=== PATIENT | male | born 1950 | race Caucasian/White ===

== ENCOUNTER → 2017-10-01 07:25 | Outpatient (CLI) | payer MEDICARE, OTHER, SELFPAY | PROVIDERS: PCP Emergency Medicine; Visit Provider Surgery | DX: L72.3 Sebaceous cyst (principal) | CPT/HCPCS: 99213 ==

== ENCOUNTER 2018-09-30 01:29 | Outpatient (CLI) | payer MEDICARE, OTHER, SELFPAY ==
[2018-09-30 12:43] LABS: Calculated LDL 101 mg/dL; Cholesterol 204 mg/dL (50-200); HDL Cholesterol 34 mg/dL (40-60); Triglyceride 347 mg/dL (30-150)
== END 2018-09-30 01:49 ==
PROVIDERS: PCP Emergency Medicine; Visit Provider Emergency Medicine
DX: E78.5 Hyperlipidemia, unspecified (principal)
CPT/HCPCS: 36415; 80061; 83721

== ENCOUNTER 2019-12-17 12:02 | Outpatient (REF) | payer MEDICARE, OTHER, SELFPAY ==
[2019-12-17 22:45] LABS: BUN 25 mg/dL (7-18); CREATININE 1.36 mg/dL (0.70-1.30); Calcium 10.4 mg/dL (8.5-10.1); Chloride 103 mmol/L (98-107); Estimated GFR 51.81 (mL/min/1.73m2); Glucose 102 mg/dL (74-106); Potassium 4.6 mmol/L (3.5-5.1); Sodium 137 mmol/L (136-145)
== END 2019-12-17 12:22 ==
LOC: LBN 12:02
PROVIDERS: PCP Emergency Medicine; Visit Provider Emergency Medicine
DX: I10 Essential (primary) hypertension (principal)
CPT/HCPCS: 80048

== ENCOUNTER 2020-04-14 01:37 | Outpatient (CLI) | payer MEDICARE, OTHER, SELFPAY ==
--- NOTE | 2020-04-14 06:30 | DI.US_ITS ---
EXAM: US ABDOMEN CLINICAL HISTORY: EPIGASTRIC ABD PAIN, R10.13 TECHNIQUE: Ultrasound of complete upper abdomen performed using standard protocol. COMPARISON: US Cardiac from 04/19/2016 FINDINGS: There is no ascites evident. LIVER: Liver is hyperechoic indicating steatosis. Liver size is also slightly prominent. There are no discrete ominous focal hepatic lesions. GALLBLADDER/BILIARY: There are no gallstones. No gallbladder wall edema nor pericholecystic fluid. The common hepatic duct measures 6 millimeters. CBD measures 9-10 millimeters. PANCREAS: There is no evidence of pancreatic mass nor dilatation of the pancreatic duct. SPLEEN: The spleen is not enlarged and there are no intrasplenic lesions evident. KIDNEYS:Kidneys exhibit normal size with no evidence of solid mass. There is a small exophytic cyst i n the mid cortex of the left kidney which measures 5 millimeter. There are few small echogenic foci i n the kidneys which may be tiny nonobstructive calculi. There is no hydronephrosis on either side. ABDOMINAL AORTA: There is no evidence of abdominal aortic aneurysm. IVC: Normal diameter where visualized. IMPRESSION: 1. No evidence of cholelithiasis. However, there is some dilatation of the extrahepatic biliary tree noted. Recommend follow-up CT scan to ensure that there is no pancreatic head mass nor calculus in t he lower CBD. 2. Liver is enlarged and hyperechoic indicating steatosis. There are no ominous focal hepatic lesion s. 3. Small benign cysts in the left kidney. Small echogenic foci in the kidneys which may indicate non obstructing calculi. DATA REPOSITORY:
== END 2020-04-14 01:38 ==
LOC: DI 01:37
PROVIDERS: PCP Emergency Medicine; Visit Provider Emergency Medicine
DX: R10.13 Epigastric pain (principal); K76.0 Fatty (change of) liver, not elsewhere classified
CPT/HCPCS: 76700

== ENCOUNTER → 2020-04-27 12:53 | Outpatient (BNVA) | payer MEDICARE, OTHER, SELFPAY | PROVIDERS: PCP Emergency Medicine; Referring Provider Emergency Medicine; Visit Provider Nurse Practitioner Gerontology | DX: R35.0 Frequency of micturition (principal); N40.0 Benign prostatic hyperplasia without lower urinary tract symptoms; Z80.42 Family history of malignant neoplasm of prostate; I10 Essential (primary) hypertension | CPT/HCPCS: 99215; G2212 ==

== ENCOUNTER 2020-04-27 15:55 | Outpatient (REF) | payer MEDICARE, OTHER, SELFPAY ==
[2020-04-27 23:07] LABS: PSA, Screening 1.8 ng/mL (0.0-6.5)
== END 2020-04-27 15:56 | disposition home or self-care (01) ==
LOC: LBN 15:55
PROVIDERS: PCP Emergency Medicine; Visit Provider Nurse Practitioner Gerontology
DX: N40.0 Benign prostatic hyperplasia without lower urinary tract symptoms (principal); Z12.5 Encounter for screening for malignant neoplasm of prostate; Z80.42 Family history of malignant neoplasm of prostate
CPT/HCPCS: 84153

== ENCOUNTER 2020-05-19 12:58 | Outpatient (REF) | payer MEDICARE, SELFPAY ==
[2020-05-19 22:27] LABS: Anion Gap 10.3 mmol/L (3-11); BUN 42 mg/dL (7-18); CO2 25.7 mmol/L (21.0-32.0); CREATININE 1.6 mg/dL (0.70-1.30); Chloride 103 mmol/L (98-107); Estimated GFR 42.82 (mL/min/1.73m2); Glucose 100 mg/dL (74-106); Potassium 4.7 mmol/L (3.5-5.1); Sodium 139 mmol/L (136-145)
== END 2020-05-19 12:59 | disposition home or self-care (01) ==
LOC: LBN 12:58
PROVIDERS: PCP Emergency Medicine; Visit Provider Emergency Medicine
DX: I10 Essential (primary) hypertension (principal)
CPT/HCPCS: 80048

== ENCOUNTER → 2020-06-10 08:30 | Outpatient (BNVA) | payer MEDICARE, OTHER, SELFPAY | PROVIDERS: PCP Emergency Medicine; Referring Provider Emergency Medicine; Visit Provider Nurse Practitioner Gerontology | DX: R35.1 Nocturia (principal) | CPT/HCPCS: 99213 ==

== ENCOUNTER 2020-08-09 02:56 | Outpatient (CLI) | payer MEDICARE, OTHER, SELFPAY ==
[2020-08-09 12:21] LABS: Bilirubin Negative (Negative); Blood Negative (Negative); Clarity Clear (Clear); Glucose Negative (Negative); Ketones Negative (Negative); Leukocyte Esterase Negative (Negative); Nitrite Negative (Negative); Urobilinogen 0.2 EU/dL (Up TO 0.2)
[2020-08-09 12:25] LABS: Anion Gap 7.7 mmol/L (3-11); BUN 35 mg/dL (7-18); CO2 30.3 mmol/L (21.0-32.0); CREATININE 1.4 mg/dL (0.70-1.30); Calcium 9.7 mg/dL (8.5-10.1); Chloride 102 mmol/L (98-107); Estimated GFR 49.96 (mL/min/1.73m2); Glucose 137 mg/dL (74-106); Sodium 140 mmol/L (136-145)
== END 2020-08-09 02:57 | disposition home or self-care (01) ==
PROVIDERS: PCP Emergency Medicine; Visit Provider Emergency Medicine
DX: I10 Essential (primary) hypertension (principal); N18.9 Chronic kidney disease, unspecified
CPT/HCPCS: 36415; 80048; 81003

== ENCOUNTER 2020-10-18 03:16 | Outpatient (CLI) | payer MEDICARE, SELFPAY ==
[2020-10-18 13:26] LABS: Anion Gap 10.4 mmol/L (3-11); BUN 31 mg/dL (7-18); CO2 28.6 mmol/L (21.0-32.0); CREATININE 1.7 mg/dL (0.70-1.30); Calcium 10.9 mg/dL (8.5-10.1); Chloride 102 mmol/L (98-107); Estimated GFR 39.93 (mL/min/1.73m2); Glucose 87 mg/dL (74-106); Potassium 4.5 mmol/L (3.5-5.1); Sodium 141 mmol/L (136-145)
[2020-10-18 14:51] LABS: Hemoglobin A1C 5.9 % (<5.7)
== END 2020-10-18 03:17 | disposition home or self-care (01) ==
LOC: LOS 03:16
PROVIDERS: PCP Emergency Medicine; Visit Provider Emergency Medicine
DX: I10 Essential (primary) hypertension (principal); E11.9 Type 2 diabetes mellitus without complications
CPT/HCPCS: 36415; 80048; 83036

== ENCOUNTER 2020-11-01 03:51 | Outpatient (CLI) | payer MEDICARE, SELFPAY ==
[2020-11-01 13:08] LABS: Anion Gap 7.9 mmol/L (3-11); BUN 27 mg/dL (7-18); CO2 29.1 mmol/L (21.0-32.0); CREATININE 1.3 mg/dL (0.70-1.30); Calcium 10.7 mg/dL (8.5-10.1); Chloride 103 mmol/L (98-107); Estimated GFR 54.42 (mL/min/1.73m2); Glucose 97 mg/dL (74-106); Potassium 4.4 mmol/L (3.5-5.1); Sodium 140 mmol/L (136-145)
[2020-11-04 14:58] LABS: PTH-Related Peptide 0.7 pmol/L (< or = 4.2)
== END 2020-11-01 03:52 | disposition home or self-care (01) ==
PROVIDERS: PCP Emergency Medicine; Visit Provider Emergency Medicine
DX: N18.9 Chronic kidney disease, unspecified (principal); I10 Essential (primary) hypertension
CPT/HCPCS: 36415; 80048; 82397

== ENCOUNTER 2021-01-20 12:41 | Outpatient (CLI) | payer MEDICARE, OTHER, SELFPAY ==
--- NOTE | 2021-01-20 11:00 | DI.RAD_ITS ---
Exam(s) XR KNEE RT 3V AP,LAT,LESLIE EXAM: XR KNEE RT 3V AP,LAT,LESLIE CLINICAL HISTORY: right knee pain M25.569. TECHNIQUE: 2D digital imaging was performed. COMPARISON: No exams were available for comparison FINDINGS: There is no evidence of fracture or prominent joint effusion. On the weight-bearing view there is mo derate narrowing of the lateral compartment mild narrowing of the medial compartment. Subtle chondro calcinosis noted in the medial compartment. Mild degenerative changes in the hello femoral compartment. Vascular calcification the popliteal art saeid noted. No osseous lesions. Bone density age-appropriate. IMPRESSION: Degenerative changes as described above. DATA REPOSITORY: RADIATION DOSE DELIVERED:
--- NOTE | 2021-01-20 11:00 | DI.RAD_ITS ---
Exam(s) XR TOE LT GREAT EXAM: XR TOE LT GREAT CLINICAL HISTORY: left great toe pain M79.675. TECHNIQUE: 2D digital imaging was performed. COMPARISON: No exams were available for comparison FINDINGS: There is no evidence of obvious fracture, realizing that there is overlapping bones on the lateral vi ew. There are advanced degenerative changes at the metatarsophalangeal joint of the great toe with elimin ation of the joint space and subarticular degenerative cysts on both sides the joint. Also small mar ginal osteophytes. No degenerative changes in the interphalangeal joint of great toe IMPRESSION: Advanced degenerative changes at the great toe metatarsophalangeal joint. DATA REPOSITORY: RADIATION DOSE DELIVERED:
== END 2021-01-20 13:01 ==
PROVIDERS: PCP Emergency Medicine; Visit Provider Emergency Medicine
DX: M79.675 Pain in left toe(s) (principal); M25.561 Pain in right knee; M19.072 Primary osteoarthritis, left ankle and foot; M17.11 Unilateral primary osteoarthritis, right knee; M11.261 Other chondrocalcinosis, right knee
CPT/HCPCS: 73562; 73660

== ENCOUNTER 2021-03-14 02:08 | Outpatient (CLI) | payer MEDICARE, OTHER, SELFPAY ==
--- NOTE | 2021-03-14 07:15 | DI.RAD_ITS ---
Exam(s) XR HIP RT COMPLETE AP PELVIS EXAM: XR HIP RT COMPLETE AP PELVIS CLINICAL HISTORY: Right hip pain,ARTHRALGIA,M25.559. TECHNIQUE: 2D digital imaging was performed. COMPARISON: CR RT HIP COMPLETE AP PELVIS from 10/06/2014 FINDINGS: No evidence of acute pelvic nor hip fracture. However, there are degenerative changes in both hips which have progressed from 2015, more prominent on the left side. There is also some dystrophic calcification again noted adjacent to left hip joint , unchanged. No ominous osseous lesions. IMPRESSION: Compared to 2014 there has been development degenerative changes both hips, more so on the left side. DATA REPOSITORY: RADIATION DOSE DELIVERED:
== END 2021-03-14 02:28 ==
PROVIDERS: PCP Family Medicine; Visit Provider Emergency Medicine
DX: M25.551 Pain in right hip (principal); M16.0 Bilateral primary osteoarthritis of hip
CPT/HCPCS: 73502

== ENCOUNTER 2021-03-14 03:51 | Outpatient (CLI) | payer MEDICARE, OTHER, SELFPAY ==
[2021-03-14 13:08] LABS: Anion Gap 8.7 mmol/L (3-11); BUN 30 mg/dL (7-18); CO2 26.3 mmol/L (21.0-32.0); CREATININE 1.5 mg/dL (0.70-1.30); Calcium 10.4 mg/dL (8.5-10.1); Chloride 103 mmol/L (98-107); Glucose 102 mg/dL (74-106); Potassium 4.8 mmol/L (3.5-5.1); Sodium 138 mmol/L (136-145)
== END 2021-03-14 03:52 | disposition home or self-care (01) ==
LOC: LBO 03:51
PROVIDERS: PCP Family Medicine; Visit Provider Emergency Medicine
DX: E83.52 Hypercalcemia (principal)
CPT/HCPCS: 36415; 80048; 73502

== ENCOUNTER → 2021-03-25 08:28 | Outpatient (BNVA) | payer MEDICARE, OTHER, SELFPAY | PROVIDERS: PCP Family Medicine; Referring Provider Emergency Medicine; Visit Provider Student in an Organized Health Care Education/Training Program | DX: M16.11 Unilateral primary osteoarthritis, right hip (principal); M19.072 Primary osteoarthritis, left ankle and foot; M17.11 Unilateral primary osteoarthritis, right knee | CPT/HCPCS: 99215 ==

== ENCOUNTER 2021-04-07 01:06 | Outpatient (CLI) | payer MEDICARE, OTHER, SELFPAY ==
--- NOTE | 2021-04-07 08:15 | DI.RAD_ITS ---
Exam(s) RF JOINT INJECTION FLUORO GUID EXAM: RF JOINT INJECTION FLUORO GUID CLINICAL HISTORY: R HIP INJ UNDER FLUORO,RT HIP PAIN,M25.551 TECHNIQUE: 2D and realtime digital imaging was performed. CONTRAST MATERIAL: Water soluble contrast was administered. COMPARISON: No exams were available for comparison FINDINGS: Fluoroscopy was provided for Dr. Joseph during the performance of a right hip injection. Please r efer to the procedure report for complete details. RADIATION DOSE DELIVERED: gunnar Ferguson=3.3 mGy
--- NOTE | 2021-04-07 15:30 | W.PROCNOTE ---
Procedure Note Date of procedure: 04/07/21 Procedure: Right Hip Injection with Fluoroscopic Guidance Surgeon/Proceduralist/Physician: Antoine Joseph Procedure Diagnosis: Right Hip Pain Procedure Indications: Abiel has had persistent pain of the RIGHT hip and groin. Noninvasive measures have been tried. To serve as both diagnostic and therapeutic, an injection under fluoroscopy was recommended. I had discussed the risks of the procedure and the patient elected to proceed. Procedure Description: Abiel was greeted in the flouroscopy room. The correct side was identified and the consent was reviewed with the patient and signed. The patient was then placed in the supine position on the fluoroscopy table. The RIGHT hip was then prepped with Chloraprep. The anterolateral injection starting point was identiifed by bony landmarks and fluoroscopy. The skin and soft tissue in the tract of the injection was anesthetized with 1% Lidocaine. A spinal needle was then inserted deep into the hip joint at the level of the lateral femoral neck under fluoroscopic guidance. A small amount of Omnipaque solution was injected to confirm intraarticular placement. Once confirmed, the hip was injected with 5cc of 0.5% Bupivicaine and 80mg of Depo-Medrol. A bandaid was placed on the injection site. The patient tolerated the procedure well and noted improvement in pre-injection pain.
[2021-04-07] MEDS: Bupivacaine 0.5% Pres-Free 10 ML VIAL 5 ML IJ (15:33)
[2021-04-07] MEDS: Omnipaque 300 MG/ML 10 ML BTL IJ (15:34)
[2021-04-07] MEDS: methylPREDNISolone ACETATE 80 MG/ML VIAL IM (15:35)
== END 2021-04-07 01:26 ==
LOC: DI 01:06
PROVIDERS: PCP Family Medicine; Visit Provider Student in an Organized Health Care Education/Training Program
DX: M25.551 Pain in right hip (principal); R10.31 Right lower quadrant pain
CPT/HCPCS: 20610; 77002; J1040

== ENCOUNTER 2021-04-25 14:53 | Outpatient (CLI) | payer MEDICARE, OTHER, SELFPAY ==
[2021-04-25 13:00] LABS: Anion Gap 9.8 mmol/L (3-11); BUN 26 mg/dL (7-18); CO2 26.2 mmol/L (21.0-32.0); CREATININE 1.6 mg/dL (0.70-1.30); Calcium 9.7 mg/dL (8.5-10.1); Chloride 104 mmol/L (98-107); Glucose 107 mg/dL (74-106); Potassium 5.1 mmol/L (3.5-5.1); Sodium 140 mmol/L (136-145)
== END 2021-04-25 14:54 | disposition home or self-care (01) ==
LOC: LBO 15:03
PROVIDERS: PCP Family Medicine; Visit Provider Emergency Medicine
DX: I10 Essential (primary) hypertension (principal)
CPT/HCPCS: 36415; 80048

== ENCOUNTER → 2021-06-14 14:51 | Outpatient (BNVA) | payer MEDICARE, OTHER, SELFPAY | PROVIDERS: PCP Family Medicine; Referring Provider Emergency Medicine; Visit Provider Nurse Practitioner Gerontology | DX: R35.1 Nocturia (principal) | CPT/HCPCS: 51798; 99214 ==

== ENCOUNTER 2021-07-11 04:10 | Outpatient (CLI) | payer MEDICARE, OTHER, SELFPAY ==
[2021-07-11 13:12] LABS: HCT 38.6 % (40.0-50.0); HGB 11.9 g/dL (13.5-17.5); MCH 28.1 pg (27.0-33.0); MCHC 30.8 % (32.0-36.0); MCV 91 fL (80-95); MPV 8.7 fL (8.0-11.0); Platelet Count 451 10^3/uL (130-400); RBC 4.24 10^6/uL (4.36-5.78); RDW 13.7 % (11.8-14.1); RDW-SD 45.9 fL; WBC 5.34 10^3/uL (4.4-10.8)
[2021-07-11 13:23] LABS: ALT 42 U/L (16-63); AST 31 U/L (15-37); Albumin 4.3 g/dL (3.4-5.0); Alkaline Phosphatase 64 U/L (46-116); BUN 24 mg/dL (7-18); Bilirubin, Total 0.4 mg/dL (0.2-1.0); CREATININE 1.3 mg/dL (0.70-1.30); Calcium 9.9 mg/dL (8.5-10.1); Chloride 106 mmol/L (98-107); Estimated GFR 54.26 (mL/min/1.73m2); Glucose 93 mg/dL (74-106); Potassium 4.6 mmol/L (3.5-5.1); Sodium 140 mmol/L (136-145); Total Protein 7.3 g/dL (6.4-8.2)
== END 2021-07-11 04:11 | disposition home or self-care (01) ==
LOC: LOS 04:11
PROVIDERS: PCP Family Medicine; Visit Provider Family Medicine
DX: N18.9 Chronic kidney disease, unspecified (principal)
CPT/HCPCS: 36415; 80053; 85027

== ENCOUNTER → 2021-07-12 13:50 | Outpatient (BNVA) | payer MEDICARE, OTHER, SELFPAY | PROVIDERS: PCP Family Medicine; Referring Provider Family Medicine; Visit Provider Nurse Practitioner Gerontology | DX: R35.1 Nocturia (principal) | CPT/HCPCS: 51798; 99214 ==

== ENCOUNTER 2021-07-19 03:08 | Outpatient (CLI) | payer MEDICARE, OTHER, SELFPAY ==
[2021-07-19 12:24] LABS: Reticulocyte 1.6 % (0.5-2.4)
[2021-07-19 12:47] LABS: Iron 105 ug/dL (65-175); Total Iron Binding Capacity 504 ug/dL (250-450)
[2021-07-19 13:14] LABS: Ferritin 56 ng/mL (26-388); TSH (W/Ref FT4) 1.67 uIU/mL (0.36-3.74); Vitamin B12 696 pg/mL (193-986)
[2021-07-19 13:15] LABS: Folate > 20.0 ng/mL (8.6-20.0)
[2021-07-20 10:08] LABS: Transferrin 390 mg/dL (201-352)
== END 2021-07-19 03:09 | disposition home or self-care (01) ==
LOC: LOS 03:09
PROVIDERS: PCP Family Medicine; Visit Provider Family Medicine
DX: D64.9 Anemia, unspecified (principal)
CPT/HCPCS: 36415; 82607; 82728; 82746; 83540; 83550; 84443; 84466; 85045

== ENCOUNTER → 2021-08-09 13:53 | Outpatient (BNVA) | payer MEDICARE, OTHER, SELFPAY | PROVIDERS: PCP Family Medicine; Referring Provider Family Medicine; Visit Provider Nurse Practitioner Gerontology | DX: N40.1 Benign prostatic hyperplasia with lower urinary tract symptoms (principal); R35.1 Nocturia | CPT/HCPCS: 51798; 99214 ==

== ENCOUNTER 2021-09-09 11:27 | Outpatient (CLI) | payer MEDICARE, OTHER, SELFPAY ==
--- NOTE | 2021-09-09 11:15 | DI.RAD_ITS ---
Exam(s) XR HIP RT COMPLETE AP PELVIS EXAM: XR HIP RT COMPLETE AP PELVIS INDICATION: pre op R FRANCESCO. COMPARISON: CR XR HIP RT COMPLETE AP PELVIS from 03/14/2021 TECHNIQUE: 2D digital imaging was performed. Three views. Template ball in place FINDINGS: There has been interval worsening of narrowing of the right hip joint space, now moderate. There is a subchondral cyst at the superior acetabulum. There is mild periarticular spurring. There is also narrowing of the superior left hip joint space, similar to the previous exam. There is an adjacent coarse calcification. There is spurring at the superior acetabulum. IMPRESSION: Moderate degenerative changes of both hips. DATA REPOSITORY: RADIATION DOSE DELIVERED:
== END 2021-09-09 11:28 | disposition home or self-care (01) ==
LOC: DIORS 11:28
PROVIDERS: PCP Family Medicine; Referring Provider Family Medicine; Visit Provider Student in an Organized Health Care Education/Training Program
DX: M16.11 Unilateral primary osteoarthritis, right hip (principal)
CPT/HCPCS: 99213; 73502

== ENCOUNTER → 2021-11-21 13:50 | Outpatient (BNVA) | payer MEDICARE, OTHER, SELFPAY | PROVIDERS: PCP Family Medicine; Referring Provider Family Medicine; Visit Provider Physician Assistant | DX: Z01.818 Encounter for other preprocedural examination (principal); M16.11 Unilateral primary osteoarthritis, right hip ==

== ENCOUNTER → 2021-11-25 00:24 | Outpatient (CLI) | payer MEDICARE, OTHER, SELFPAY ==
--- NOTE | 2021-11-25 07:35 | DI.US_ITS ---
APPROVED REPORT EXAM: Comprehensive 2D, Doppler, and color-flow Echocardiogram Patient Location: Out-Patient [facility] Merchandiser: Debbie Dash RDCS (AE) Indications: High risk for surgery, Aortic regurgitation, Pre op Other Information Study Quality: Fair Conclusion Normal left ventricular chamber size. Borderline concentric left ventricular hypertrophy. Ejection fraction is 55 to 60%. Wall motion is normal Normal right ventricular size and systolic function Both atria are normal in size The aortic valve is mildly sclerotic and trileaflet with mild regurgitation Normal mitral valve with mild regurgitation Normal tricuspid valve with mild regurgitation Mildly dilated ascending aorta Wall motion Left Ventricle The left ventricle is normal size. The left ventricular systolic function is normal. The left ventric ular ejection fraction is within the normal range. Borderline concentric left ventricular hypertrophy . There is normal LV segmental wall motion. There is no ventricular septal defect visualized. LVEF is 58%. Right Ventricle The right ventricle is normal size. The right ventricular systolic function is normal. The RVSP is 32 .7 mmHg. Atria The left atrium size is normal. The right atrium size is normal. The interatrial septum is intact wit h no evidence for an atrial septal defect. Aortic Valve The Aortic valve is sclerotic. Aortic valve is trileaflet. There is no aortic valvular stenosis. Mild aortic regurgitation. Mitral Valve The mitral valve is normal in structure. No evidence of mitral valve stenosis. Mild mitral regurgitat ion. Tricuspid Valve The tricuspid valve is normal in structure. There is no tricuspid valve stenosis. Mild tricuspid regu rgitation. Pulmonic Valve The pulmonary valve is normal in structure. There is no pulmonic valvular stenosis. Trace pulmonic re gurgitation. Great Vessels Aortic root is mildly dilated. The ascending aorta is mildly dilated. Aortic arch is normal in calibe r. IVC is normal in size and collapses >50% with inspiration. Pericardium There is no pericardial effusion. 2D Dimensions IVSD d PLAX 1.23 cm M: 0.6-1.2 LV Vol A2C d MOD 110.9 mL LVPW d PLAX 1.23 cm M: 0.6 - 1.2 LV Vol A4C d MOD 154.6 mL LVID d PLAX 4.77 cm M: 4.2 - 5.8 LA vol/ BSA A2C s A-L 32.7 mL/m2 LVDs 3.30 cm M: 2.5 - 4.0 LA vol/ BSA A4C s A-L 40.5 mL/m2 Ao Root d 3.79 cm M: 3.1 - 3.7 LA Vol/ BSA Biplane s A-L 36.7 mL/m2 RA Area A4C 17.89 cm2 LA Area A4C s MOD 20.82 cm2 RA Vol/ BSA A4C s A-L 30.1 mL/m2 LA Area A2C s MOD 18.51 cm2 Ao Asc Diam d 3.88 cm M: 2.6 - 3.4 LV EF A4C MOD 57.8 % LV EF Teichholz 57.8 % LV EF A2C MOD 58.7 % LVEF (Acharya's) 58.79 % M: 52 - 72 LV EF Biplane MOD 58.8 % LV Volume 109.69 mL M: 62 - 150 SV 79.90 mL LV Volume Index 67.70 mL/m2 M: 34 - 74 SV Index 49.07 mL/m2 LV Vol Biplane MOD 135.9 mL FS 30.45 % M-Mode TAPSE 2.09 cm (M/F) >1.7 LV Diastology MV E' medial 0.066 (>0.07 m/s) E/A Ratio 0.7 LV E/e MED 10.40 (<14) MV E Vmax 0.69 (0.4-1.3 m/s) MV E' lateral 0.074 (>0.1 m/s) MV A Vmax 1.00 (0.4-1.3 m/s) LV E/e LAT 9.30 (<14) MV E/A Ratio 0.69 MV E/E' medial 10.43 MV E/E' lateral 9.33 Aortic Valve LVOT Area 3.07 cm2 AoV Area Vmax 2.45 cm2 LVOT Vmax 1.30 m/s AoV Area/ BSA (Vmax) 1.51 cm2/m2 LVOT Mean Jermaine. 0.82 m/s LISA Mean Jermaine. 2.30 cm2 LVOT Peak Grad 6.8 mmHg LISA Mean Jermaine. Index 1.41 cm2/m2 LVOT Mean Grad 3.3 mmHg AR DT 2190 msec LVOT VTI 0.292 m AR PHT 635 msec LVOT Diam s 1.95 cm AoV Vmax 1.63 m/s Velocity Ratio 0.79 AoV Mean Jermaine. 1.10 m/s AoV Peak Grad 10.6 mmHg LVOT SV 89.61 mL AoV Mean Grad 5.6 mmHg AoV VTI 0.331 m AoV Area VTI 2.70 cm2 AoV Area/ BSA (VTI) 1.66 cm/m2 Mitral Valve MV DT 329 (160-240 msec) MV PHT 96 msec MV Area PHT 2.30 cm2 MV VTI 0.382 m MV Area VTI 2.35 (4.0-6.0 cm2) Pulmonary Valve PV Vmax 0.99 (0.5-1.5 m/s) RVOT Peak Gr. 2.87 mmHg PV Peak Grad 4.0 mmHg RVOT Mean Gr. 1.50 mmHg PV Mean Grad 2.1 mmHg RVOT VTI 0.174 m PV VTI 0.241 m RVOT Vmax 0.85 m/s Tricuspid Valve TR Peak Grad 29.7 mmHg TR Vmax 2.73 m/s RA Pressure 3.00 mmHg RVSP (TR) 32.7 mmHg
== END ==
PROVIDERS: PCP Family Medicine; Visit Provider Student in an Organized Health Care Education/Training Program
DX: I35.1 Nonrheumatic aortic (valve) insufficiency (principal)
CPT/HCPCS: 93306

== ENCOUNTER 2021-11-28 02:58 | Outpatient (CLI) | payer MEDICARE, OTHER, SELFPAY ==
[2021-11-28 09:05] LABS: Abs Immature Grans 0.03 10^3/uL (0.0-0.06); Absolute Basophil Count 0.05 10^3/uL (0.0-0.2); Absolute Eosinophil Count 0.12 10^3/uL (0.0-0.7); Absolute Lymphocyte Count 1.36 10^3/uL (1.2-3.4); Absolute Monocyte Count 0.69 10^3/uL (0.1-0.8); Absolute Neutrophil Count 3.58 10^3/uL (1.2-6.7); Basophils % 0.9; Eosinophils % 2.1; HCT 38.8 % (40.0-50.0); HGB 12.7 g/dL (13.5-17.5); Immature Grans % 0.5; Lymphocytes % 23.3; MCH 28.5 pg (27.0-33.0); MCHC 32.7 % (32.0-36.0); MCV 87 fL (80-95); MPV 8.1 fL (8.0-11.0); Monocytes % 11.8; Neutrophils % 61.4; Platelet Count 507 10^3/uL (130-400); RBC 4.46 10^6/uL (4.36-5.78); RDW-SD 41.2 fL; WBC 5.83 10^3/uL (4.4-10.8)
[2021-11-28 09:37] LABS: Anion Gap 8.6 mmol/L (3-11); BUN 28 mg/dL (7-18); CO2 29.4 mmol/L (21.0-32.0); CREATININE 1.4 mg/dL (0.70-1.30); Calcium 10.3 mg/dL (8.5-10.1); Chloride 102 mmol/L (98-107); Glucose 121 mg/dL (74-106); Potassium 4.1 mmol/L (3.5-5.1); Sodium 140 mmol/L (136-145)
[2021-11-28 09:40] LABS: C-Reactive Protein 0.66 mg/dL (0.0-0.3)
== END 2021-11-28 02:59 | disposition home or self-care (01) ==
LOC: LBO 02:58
PROVIDERS: PCP Family Medicine; Visit Provider Student in an Organized Health Care Education/Training Program
DX: M25.551 Pain in right hip (principal); M16.11 Unilateral primary osteoarthritis, right hip; D64.9 Anemia, unspecified; Z01.818 Encounter for other preprocedural examination; Z01.812 Encounter for preprocedural laboratory examination; R79.82 Elevated C-reactive protein (CRP)
CPT/HCPCS: 36415; 80048; 85025; 86140

== ENCOUNTER 2021-12-13 08:35 | Day surgery (SDC) | payer MEDICARE, OTHER, SELFPAY ==
[2021-12-13] VITALS (12 sets, daily range): BP systolic 79–148; BP diastolic 36–70; PULSE 36–60; RESP 13–18; TEMP 36.1–36.6; O2SAT 93–98; BMI 26.5
[2021-12-13] MEDS: Lactated Ringers 1,000 ML 80 ML IV (09:01)
[2021-12-13] MEDS: Acetaminophen 500 MG TAB 1000 MG PO (09:02)
[2021-12-13] MEDS: Celecoxib 200 MG CAP 400 MG PO (09:02)
--- NOTE | 2021-12-13 09:24 | W.ANESPRE ---
General Info Date of Service Date Performed: 12/13/21 Height: 5 ft 2 in Weight: 65.8 kg Body Mass Index (BMI): 26.5 Surgical Procedure: Operation Date: 12/13/21 11:35 Proposed Procedure Side Surgeon p Hip Total Hip Anterior Right Antoine Joseph MD Meds Allergies and Home Medications Allergies Allergy/AdvReac Type Severity Reaction Status Date / Time hydrochlorothiazide AdvReac Intermediate hypercal Verified 12/13/21 08:40 oxybutynin AdvReac Mild dry mouth Verified 12/13/21 08:40 Home Medication Medication Instructions Recorded multivitamin with minerals 1 ea PO DAILY 11/10/15 (Multiple Vitamin-Minerals tablet) pravastatin 40 mg tablet 40 mg PO DAILY #90 tab-caps 12/24/20 amlodipine 10 mg tablet 10 mg PO DAILY #90 tabs 03/10/21 losartan 50 mg tablet 50 mg PO DAILY #90 tabs 07/13/21 omeprazole 20 mg capsule,delayed 20 mg PO DAILY 08/17/21 release fenofibrate 160 mg tablet 160 mg PO DAILY #90 tabs 10/31/21 oxybutynin chloride 5 mg 5 mg PO DAILY #90 tabs 11/15/21 tablet,extended release 24 hr Current Visit Medications: Current Medications Generic Name Dose Route Start Last Admin Trade Name Freq PRN Reason Stop Dose Admin Acetaminophen 1,000 mg 12/13/21 06:00 12/13/21 09:02 Acetaminophen 500 Mg Tab PO 12/13/21 18:00 1,000 mg PREOP BLANCA Administration Acetaminophen 1,000 mg 12/13/21 14:00 Acetaminophen 500 Mg Tab PO TID BLANCA Aspirin 81 mg 12/13/21 20:00 Aspirin E.C. 81 Mg Tabec PO BID BLANCA Celecoxib 400 mg 12/13/21 06:00 12/13/21 09:02 Celecoxib 200 Mg Cap PO 12/13/21 18:00 400 mg PREOP BLANCA Administration Celecoxib 200 mg 12/13/21 20:00 Celecoxib 200 Mg Cap PO BID BLANCA Docusate Sodium 100 mg 12/13/21 07:37 Docusate Sodium 100 Mg Cap PO BID PRN PRN Constipation Tranexamic Acid 1,000 mg/ 60 mls @ 360 mls/hr 12/13/21 06:00 Sodium Chloride IV 12/13/21 18:00 PREOP BLANCA Ringer's Solution 1,000 mls @ 80 mls/hr 12/13/21 06:00 12/13/21 09:01 IV 01/11/22 23:59 80 mls/hr INFUSION BLANCA Administration Cefazolin Sodium/Dextrose 2 gm in 50 mls @ 100 mls/hr 12/13/21 06:00 Ancef Duplex IVPB 12/13/21 16:00 PREOP BLANCA Cefazolin Sodium/Dextrose 1 gm in 50 mls @ 100 mls/hr 12/13/21 08:00 Ancef Duplex IVPB 12/14/21 00:29 Q8H BLANCA IV Miscellaneous Supplies 1 each 12/13/21 06:00 Iv Access IV 01/11/22 23:59 DIRECTED BLANCA Ondansetron HCl 4 mg 12/13/21 07:37 Ondansetron 4 Mg/2 Ml Vial IVP Q6H PRN PRN Nausea Oxycodone HCl 0 mg 12/13/21 07:37 Oxycodone 5 Mg Tab PO Q3H PRN PRN Pain Pantoprazole Sodium 40 mg 12/14/21 07:30 Pantoprazole 40 Mg Tabcr PO DAILY@0730 [facility] Polyethylene Glycol 17 gm 12/13/21 07:37 Polyethylene Glycol 3350 17 Gm Packet PO BID PRN PRN Constipation Sodium Chloride 0 ml 12/13/21 06:00 Normal Saline Flush 10 Ml Syr IV 01/11/22 23:59 PRN PRN Sodium Chloride 0 ml 12/13/21 06:00 Normal Saline 10 Ml Vial IJ 01/11/22 23:59 DIRECTED PRN Sterile Water 0 ml 12/13/21 06:00 Water,Injection,Sterile 10 Ml Vial IJ 01/11/22 23:59 DIRECTED PRN PFSH Active Problems Active Problems: Problem Status Onset Code Osteoarthritis of right hip M16.11 Anemia D64.9 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 Recovered without in hospital stay. 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 Neg stress and echo. See cardiology consult 05/05. 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) Status post replacement of right shoulder joint (~2018) Tobacco Smoking/Tobacco Use Status: Never Passive smoking exposure: Yes Second hand exposure: Yes Alcohol Alcohol Intake: current Alcohol intake frequency: 0-2 drinks per day Alcohol type: beer, wine and hard liquor Substance Use Substance use: Never Vital Signs and Lab Results Vital Signs Most Recent Vital Signs in EMR: Most Recent Vital Signs Temp Pulse Resp BP Pulse Ox 36.2 C L 60 18 148/70 H 98 12/13/21 08:42 12/13/21 08:42 12/13/21 08:42 12/13/21 08:42 12/13/21 08:42 Lab Results Blood Type / Crossmatch: No Data to Display Complete Blood Count: White Blood Count 5.83 10^3/uL (4.4-10.8) 11/28/21 08:57 Red Blood Count 4.46 10^6/uL (4.36-5.78) 11/28/21 08:57 Hemoglobin 12.7 g/dL (13.5-17.5) L 11/28/21 08:57 Hematocrit 38.8 % (40.0-50.0) L 11/28/21 08:57 Platelet Count 507 10^3/uL (130-400) H 11/28/21 08:57 Complete Metabolic Panel: Sodium 140 mmol/L (136-145) 11/28/21 08:57 Potassium 4.1 mmol/L (3.5-5.1) 11/28/21 08:57 Chloride 102 mmol/L (98-107) 11/28/21 08:57 Carbon Dioxide 29.4 mmol/L (21.0-32.0) 11/28/21 08:57 BUN 28 mg/dL (7-18) H 11/28/21 08:57 Creatinine 1.4 mg/dL (0.70-1.30) H 11/28/21 08:57 Est GFR (CKD-EPI 2020) 53.40 (mL/min/1.73m2) 11/28/21 08:57 Calcium 10.3 mg/dL (8.5-10.1) H 11/28/21 08:57 Glucose 121 mg/dL (74-106) H 11/28/21 08:57 C-Reactive Protein 0.66 mg/dL (0.0-0.3) H 11/28/21 08:57 Liver Function Panel: No Data to Display Coagulation Panel: No Data to Display Cardiac Panel: No Data to Display Arterial Blood Gas: No Data to Display Venous Blood Gas: No Data to Display Pancreas Panel: No Data to Display Thyroid Panel: No Data to Display Infectious Disease: No Data to Display Blood Cultures: No Data to Display Toxicology Panel: No Data to Display Imaging and Studies Imaging and Studies Study information below may be from another EMR and interpreted by another provider. Please see original notes in EMR for more complete details. Stress Test Summary: 05/22/2016: Summary: 1. Myocardial perfusion imaging: No myocardial perfusion defects noted. 2. The calculated left ventricular ejection fraction after stress: 58%. 3. Stress: The target heart rate was not achieved. Echocardiogram Summary: 11/25/2021: Conclusion Normal left ventricular chamber size. Borderline concentric left ventricular hypertrophy. Ejection fraction is 55 to 60%. Wall motion is normal Normal right ventricular size and systolic function Both atria are normal in size The aortic valve is mildly sclerotic and trileaflet with mild regurgitation Normal mitral valve with mild regurgitation Normal tricuspid valve with mild regurgitation Mildly dilated ascending aorta Anesthesia Assessment and Plan Anesthesia History Personal History: No History of Anesthesia Complications Family History: No Family History of Anesthesia Complications Exercise Tolerance Exercise Tolerance: Metabolic Equivalents>4 Pertinent Negatives Pertinent Negatives: No Major Cardiovascular Symptoms or Complaints and No Major Pulmonary Symptoms or Complaints Cardiac & Pulmonary Exam Cardiac Exam: Normal S1/S2 Heart Sounds Pulmonary Exam: Clear Bilateral Breath Sounds Implantable Cardiac Device Does patient have a Pacemaker or an ICD?: No Airway Exam Known Difficult Airway: No Mallampati Class: 2 Mouth Opening: Normal (> 3cm) Thyromental Distance: Greater than 3 cm Facial Hair: Full [place]ck Range of Motion: Full ROM Neck Circumference: Normal Teeth Condition: Normal Dentition ASA Classification ASA Score: ASA 2 Emergency Case?: No NPO Status NPO Status: NPO Clears >2 hours, Solids >8 hours Anesthesia Plan Resuscitation Status: Full Code Anesthesia Technique: General Anesthesia Airway Planned: Endotracheal Tube Monitors Used: Standard Monitors
[2021-12-13] MEDS: ceFAZolin 2 GM/50 ML BAG IVPB (10:48)
--- NOTE | 2021-12-13 12:00 | DI.RAD_ITS ---
Exam(s) XR HIP RT IN OR EXAM: XR HIP RT IN OR CLINICAL HISTORY: right hip osteoarthritis. TECHNIQUE: 2D digital imaging was performed. COMPARISON: No exams were available for comparison FINDINGS: Fluoroscopy was provided during hip procedure See procedure report for details Cumulative dose 3.4573mGy IMPRESSION: DATA REPOSITORY: RADIATION DOSE DELIVERED:
--- NOTE | 2021-12-13 12:25 | ROE_ITS ---
Date of service: 12/13/21 Time of Service: 12:25 Operative Note Operative Note DATE OF PROCEDURE: 12/13/21 PRE-OP DIAGNOSIS: Right Hip Osteoarthritis POST-OP DIAGNOSIS: same PROCEDURE: Right Anterior Total Hip Arthroplasty with Intraoperative Navigation SURGEON: Antoine Joseph CONSTRUCTION FIELD ENGINEER: James Smart ANESTHESIA TYPE: General LMA/ETT Refer to Anesthesia Record ESTIMATED BLOOD LOSS: 100 PATHOLOGY: none sent TOURNIQUET TIME: 0 COMPLICATIONS: None Patient was transported to: PACU Patient's condition: stable Implants: 1. Depuy [place] Acetabular Component, 50mm 2. Depuy Acetabular Liner, 23w55hh 3. Depuy Corail Standard Collared Femoral Stem, Size 11 4. Depuy Altrx Ceramic Femoral Head, Size 32+1mm Indications: I have seen Abiel in clinic for symptoms of hip arthritis, confirmed with radiographic findings. He has exhausted nonoperative methods and was having significant limitations in daily function and desired better function and less pain. I discussed the technical details of a hip replacement. I explained the risks of the procedure to include, but not limited to, bleeding, infection, pain, stiffness, fracture, damage to nerves and vessels, damage to muscles and tendons, loosening, instability, leg length inequality, need for repeat procedure, blood clot and cardiopulmonary demise. Despite these risks, Abiel elected to proceed. Findings: There was significant signs of arthritis throughout the hip. Procedure Description: Abiel was greeted in the preoperative holding area where the correct side was identified and marked. The consent was reviewed with the patient and signed. The history and physical was updated. All questions were answered. He was taken back to the operating room. A general anesthestic was then ad ministered. The feet were wrapped with cast padding and Coban and then placed into the boot liners and then into the boots. Care was taken to protect the skin and make sure the heels were fully down and the boots were stable. The patient was then positioned onto the HANA table. Both legs were held in a neutral position. SCDs were applied. The patient was then slid down onto a peroneal post. Prophylactic antibiotics in the form of Cefazolin were administered. 1g of Tranxemic Acid was given intravenously within 30 minutes of incision. The right leg was then prepped with Chloraprep and draped in a standard fashion. A second prep with Chloraprep was performed prior to placement of a shower-curtain type drape with Iodine impregnated skin protection. A timeout to confirm correct identity, side and site, procedure, allergies, anesthesia, and medical concerns was performed. An obliquely oriented incision was made starting lateral to the ASIS and running distal over the Tensor Fascia Tiesha (TFL) muscle belly toward the fibular head, approximately 10cm. The skin and soft tissue was dissected sharply, through Vickie?s fascia, and to the fascia of the TFL. With the fascia and superior border of the IT band identified, the fascia was incised with a new knife just above any perforators from the IT band. The TFL muscle belly was bluntly dissected away from the fascia and moved laterally. The fat between TFL and rectus was identified to ensure the dissection was not within the TFL. Blunt dissection created space between abductors and the capsule and retractor was placed over the lateral femoral neck. The fibers of the rectus femoris tendon were identified and these were freed from the anterior capsule. A second cobra retractor was placed around the medial femoral neck. The TFL was further retracted laterally to show the deep fascia. Careful dissection through this layer identified three main crossing vessels of the lateral femoral circumflex. These were cauterized in multiple locations and then cut without any noticeable bleeding. The TFL was further released bluntly from the deep fascia to expose anterior hip capsule and fat The Vikash orthopaedic retractor was then placed beneath the TFL and against sartorius and medial soft tissues to protect and retract the soft tissues. A T-capsulotomy was then performed starting at the superior lateral acetabulum and moving distally to the intertrochanteric ridge. These capsular flaps were tagged with a No. 1 Ethibond and elevated from within. The capsular flaps were released to the shoulder of the lateral neck and to the lesser trochanter to give excellent visualization of the proximal femur. A neck osteotomy was performed using an oscillating saw based on preoperative templates. This cut started in the shoulder and of the lateral neck and exited medially. The saw was at all times directed medially to avoid injury to the greater trochanter. Gross traction was applied to the leg and the osteotomy opened. The femoral head was removed with a corkscrew, making sure to protect the TFL on its exit. Traction was released after head removal. This was measured on the back table to determine the starting reamer size. Portions of the rectus obscuring visualization were minimally elevated off the superior acetabulum. An anterior retractor was placed over the anterior wall between capsule and labrum and attached to the Gripper retraction system. The femur was rotated to 90 degrees and medial capsule was fully released until the lesser trochanter was palpable and visible; the femur was returned to 30 degrees. A posterior retractor was placed similarly between capsule and labrum. This provided excellent visualization. The contents of the cotyloid fossa were removed with electrocautery and the labrum was removed with a knife. There was a notable floor osteophyte. Acetabular reaming began with a 46mm reamer. This first reaming was directed anterior to posterior and medial to get down to the true floor. This was inspected and reamed until the true floor was reached. The anterior retractor was then released and entry and exit was provided by traction on the capsular f laps. I then reamed sequentially up to a 50mm reamer where good fit was obtained. The larger reamers were oriented based on anatomical reference of the anterior and lateral ferreira to ensure proper abduction and anteversion. Positioning and size was confirmed with the fluoroscopy. A 50mm Depuy [place] acetabular component was selected. The acetabulum was reamed around the periphery with the selected acetabular size to prevent a rim fit. The deep tissues were irrigated. The acetabular component was then impacted in a position of about 40-45 degrees of abduction and 15-20 degrees of anteversion, using the patient?s anatomy as the ultimate landmark. Fluoroscopy was used to confirm this. There was excellent oncology pharmacist of the acetabular component and the inserting handle was removed. The acetabular liner, Depuy [id number] polyethylene liner, was inserted and lined up with the tines of the acetabular component. There was no soft tissue interposition. The liner was then impacted into position and confirmed to be well-seated. A portion of the hal-articular cocktail was then injected around the acetabulum into the capsule and periosteum. This cocktail consisted of 123mg of Ropivacaine, 0.25mg of Epinephrine, 0.04mg of Clonidine, and 15mg of Ketorolac, diluted to 50cc. The leg was rotated to 120 degrees. Any remaining medial capsule was released until the lesser trochanter was easily palpable. A retractor was placed medially. The lateral capsule was further released into the shoulder to allow access to the greater trochanter. A Boudreaux retractor was placed over the great er trochanter which allowed the trochanter to flip in front of the capsule for excellent exposure. The leg was brought down into maximal extension and 20 degrees of adduction while ensuring there was no impingement on the acetabulum. Any remnant capsule within the trochanter was released. Piriformis and obturator externis were identified and protected. There was excellent access to the proximal femur. The lateral neck remnant was removed with a rongeur. A blunt canal probe was used to identify the canal and trajectory for later broaching. A box osteotome initiated the broach course. A small curved rasp and a curved curette were used to work laterally. Broaching then began with a size 8 Corail broach. This was inserted manually around the trochanter and into the canal before mallet blows. The broach was seated to a few millimeters below the cut level based on the neck cut and the preoperative template. Sequential broaching was continued with the Atavist pneumatic broaching device until a tight fit was obtained with good rotational control of the femur. A trial standard neck was inserted along with a +1 trial head. The leg was brought out of extension and adduction and then reduced with traction and internal rotation. The leg was stable anteriorly in a position of 30 degrees of extension and 90 degrees of external rotation. Fluoroscopy was used to ensure there was no fracture and the stem was seated well. Leg lengths were checked with an AP pelvis and pelvic reference points. Sportody navigation system was used to confirm appropriate positioning and leg length and offset. Once content with the desired offset and leg lengths, the leg was brought back into extension, external rotation and adduction. The periosteum and surrounding tissue was injected with remaining portion of the hal-articular cocktail. The proximal femur was irrigated as well as the deep tissues. The Depuy Corail standard collared stem, size 11, was then manually inserted into the proximal femur making sure to control rotation. It was then malleted into position with light blows, giving breaks to allow bone expansion and decrease risk of fracture. The selected Depuy Altrx Ceramic Head, size 32+1mm, was then placed onto the clean and dry trunnion and secured with impaction onto the tapered fit. The leg was brought back out of extension and adduction and reduced with traction and internal rotation. Stability was confirmed with no shuck at 90 degrees of external rotation and 30 degrees of extension. No impingement through range of motion arc. Final x-ray images were obtained with fluoroscopy to confirm adequate positioning and no intraoperative fracture. The deep tissues were thoroughly irrigated with Surgiphor, betadine solution. This was allowed to sit in the wound for 3 minutes before being thoroughly irrigated out with normal saline. The capsule was then reapproximated with the previously placed Ethibond sutures. The TFL fascia was finally closed with a No. 2 Stratafix, barbed suture. Deep tissues were then reapproximated with 0 Vicryl and a running 2-0 Vicryl. The skin was closed with a running 4-0 Monocryl in a subcuticular fashion. This was reinforced with skin glue. A Mepilex silver dressing was applied. At the end of the case, all counts were correct. Abiel was transferred to the hospital bed without difficulty and suffering no apparent complication. Abiel has a good prognosis. Physical therapy will start today and without restrictions, weight-bearing as tolerated. Aspirin 81mg BID will be used for DVT prophylaxis.
--- NOTE | 2021-12-13 12:29 | W.PM.DSUDISC ---
Date of service: 12/13/21 Time of Service: 12:29 Discharge Plan Disposition Patient Disposition: HOME Condition: Good Discharge Details Reason For Visit: Right Hip Arthritis Attending Provider: Antoine Joseph Primary Care Provider: Heidi King Home Meds and New Rx's Prescriptions: New acetaminophen 500 mg tablet 1,000 mg PO Q8H PRN (Reason: pain) Qty: 90 3RF aspirin 81 mg tablet,delayed release (DR/EC) 81 mg PO BID Qty: 60 0RF celecoxib 200 mg capsule 200 mg PO BID PRN (Reason: pain) Qty: 60 1RF dexamethasone 4 mg tablet 4 mg PO DAILY Qty: 2 0RF Rx Instructions: Starting Post-Operative Day #1 (Day after surgery) oxycodone 5 mg tablet 5 mg PO Q4H Qty: 15 0RF Continued amlodipine 10 mg tablet 10 mg PO DAILY Qty: 90 3RF losartan 50 mg tablet 50 mg PO DAILY Qty: 90 3RF omeprazole 20 mg capsule,delayed release(DR/EC) 20 mg PO DAILY Multiple Vitamin-Minerals 1 EACH tablet 1 ea PO DAILY pravastatin 40 mg tablet 40 mg PO DAILY Qty: 90 4RF fenofibrate 160 mg tablet 160 mg PO DAILY Qty: 90 3RF oxybutynin chloride 5 mg tablet extended release 24hr 5 mg PO DAILY Qty: 90 0RF Discharge Instructions Additional Instructions: Total Hip Discharge Instructions Activity: The most important activity is to walk. You should try to take short walks a few times a day. You have no restrictions on movement or positioning, but do not try to force what you do. You will find some stiffness and weakness with hip flexion (lifting your knee). Do not try to strengthen this too early, continue to practice walking and stairs and this will come. - Outpatient physical therapy can be helpful to help return you to a normal gait and improve your flexibility and strength. This can start around 2 weeks. For some patients, it?s not necessary. Usually this is determined at the time of discharge or at the first post-operative visit. - You should wear the SANJAY hose on both legs for 2 weeks. Dressing: Keep the surgical dressing in place for at least one week. After the first week it may be removed and replace with light gauze and tape or nothing. It may get wet after 3 days but avoid soaking the dressing. If it gets wet, just lightly pat dry. It is important to always keep some gauze between skin folds, especially when you are sitting. Spend some time with the wound exposed when you are lying flat as the incision does wrinkle onto itself. Medications: - You should take Tylenol and an anti-inflammatory Celebrex as your primary pain control medications. If the Celebrex is too expensive or not covered, please call the office for another alternative (Advil/Ibuprofen or Naproxen/Aleve). - You have been prescribed a stronger pain medication Oxycodone for breakthrough pain, take as needed as prescribed. - You should continue your stomach acid reduction agent Omeprazole to help reduce stomach acid and reflux. - You have also been prescribed Decadron to help with post-operative nausea and pain. You will take this for two days starting tomorrow. - You will be taking Aspirin 81mg twice a day for DVT prevention unless instructed otherwise. - If you have constipation you should take Colace or Miralax (both [id number]). It takes most people 3-4 days to have a bowel movement. Follow-up: 2 weeks If you have any acute concerns or questions, please do not hesitate to contact the office at [phone]. You may contact Dr. Joseph with any questions after hours through the hospital at [phone] or on his cell phone at [phone]. Referrals: Antoine Joseph MD [ [facility] STAFF PHYSICIAN] - Equipment/Supplies: Walker Activity:: Activity as Tolerated Shower/Bathe:: Cover Diet:: As Tolerated Discharge Orders Discharge Orders: Discharge Order (Routine); Ordered 12/13/21 Ordered By: Antoine Joseph
[2021-12-13] MEDS: ePHEDrine 25 MG/5 ML Syringe IVP (12:33)
[2021-12-13] MEDS: Normal Saline Flush 10 ML SYR IV (12:35)
--- NOTE | 2021-12-13 13:24 | W.ANESPOSTOP ---
Postoperative Evaluation Date, Time and Location Date Performed: 12/13/21 Time Performed: 13:39 Patient Location: PACU Vital Signs Most Recent Imported Vital Signs: Most Recent Vital Signs Temp Pulse Resp BP Pulse Ox 36.3 C L 42 L 14 94/57 L 95 12/13/21 13:10 12/13/21 13:10 12/13/21 13:10 12/13/21 13:10 12/13/21 13:10 Pain Score Most Recent Pain Score: Most Recent Pain Score Pain Level 0 12/13/21 13:10 Assessment Mental Status: Awake (Alert & Oriented to Patient Baseline) Airway and Respiratory Function: Patent airway with normal (patient baseline) respiratory exam Cardiovascular Function: Hemodynamically Stable Hydration Status: Adequately Hydrated Nausea & Vomiting: No Nausea or Vomiting Pain: Pt. Denies Any Pain Peripheral Nerve Block: Patient did not receive a nerve block
--- NOTE | 2021-12-13 14:46 | IN_ITS ---
PT Notes Visit Reasons: Right Hip Arthritis Physical Therapy Day Surgery Initial Evaluation Date: 12/13/2021 Referring Doctor: LOLA Hess PT Orders: PT CONSULT: S/p Ortho surgery Precautions: WBAT on right LE with AD. Patient Profile/Admitting Diagnosis: Abiel is a 71-year-old male with degenerative joint disease of the right hip and is status post anterior right total hip arthroplasty on postoperative day 0. PMHX: Medical History? Aspiration pneumonia of left lower lobe due to vomit (04/18/16) during colonoscopy.? Recovered without in hospital stay. 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 Neg stress and echo.? See cardiology consult 05/05. 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 There is an alternate entrance through the cellar with a flight of steps with rails on both sides. Independent with all aspects of ADLs prior to surgery. Equipment Owned/DME: [facility] Subjective: Reports being shaky and cold Early in the session. Per Nurse Fair, patient's heart rate has been in the low 50s and high 40s since during surgery until now. Denies headache, chest pain, lightheadedness throughout session. Nurse Fair needed use of Swathi hugger to address symptoms. Objective: General Observation: Supine in stretcher. TEDS to B legs. Cryocuff to right hip. Yany present throughout evaluation. Mental Status: Alert and oriented x 4 Pain: 2-3/10 in the left hip at rest ROM: Right Lower Extremity: Hip flexion WFL. Hip abduction WFL. Knee flexion WFL. Ankle dorsiflexion WFL. Ankle plantarflexion WFL. Left Lower Extremity: Hip flexion WFL. Hip abduction WFL. Knee flexion WFL. Ankle dorsiflexion WFL. Ankle plantarflexion WFL. Strength: Right Lower Extremity: Hip flexors 4/5. Hip abductors 4/5. Knee flexors 5/5. Knee extensors 4/5. Ankle dorsiflexors 5/5. Ankle plantarflexors 5/5. Left Lower Extremity:Hip flexors 5/5. Hip abductors 5/5. Knee flexors 5/5. Knee extensors 5/5. Ankle dorsiflexors 5/5. Ankle plantarflexors 5/5. Sensation: Intact as to pain and light pressure in bilateral lower extremities. Bed Mobility/Transfers: Supine to sit standby assist Sit to stand contact-guard assist Stand to sit contact-guard assist Bed to chair contact-guard assist THERA EX: Heel slides x 10 Bilateral LAQs x 10 Gluteal sets x 10 Quadriceps sets x 10 Ankle DF/PF x 10 Gait: 20 feet +50 feet +50 feet using front wheeled walker with step to gait pattern. Nurse Fair providing wheelchair follow for safety. HR went up to the 60s during ambulation activity. Stairs: Up and down 6 x 4 inch steps and 4 x 6 inch steps while holding onto a rail with 1 hand and a single-point cane with the other hand with step-over pattern. Balance: Static Sitting: Normal Dynamic Sitting: Normal Static Standing: Fair Dynamic Standing: Fair Special Tests: Mobility Limitations Standardized Measure [facility] AM-PAC 6 clicks Basic Mobility Inpatient Short Form: Raw Score: 18 CMS Score: 47% deficit Informed Consent/Education: Patient instructed in purpose of PT consult. Education and training on initial set of exercises that can be done at home have been completed with patient and patient's . Assessment: Session initially limited by patient's heart rate response but eventually normalized with mobility assessment. Patient requires the use of a front wheeled walker for all mobility ADL performance to maximize independence and reduce fall risk Patient presents with clinical signs and symptoms consistent with current/admitting diagnoses that have resulted to mobility limitations, gait instability, generalized weakness, and impairment of motor control as demonstrated by the following impairment level findings: 1. Decreased strength to right hip major muscle groups 2. Impaired standing balance Impairments are contributing to the following functional limitations: 1. Inability to safely ambulate without assistive device 2. Increase completion time for mobility ADL performance 3. Increased fall risk Patient is assessed as a 83614 moderate complexity based on the following: History: 71-year-old male with impairment level findings, functional limitations, and past medical history as indicated above Examination: Demonstrable impairment in strength, balance, and mobility level with underlying impairments and functional limitations as documented above Presentation: Evolving Decision Makin moderate Complexity Goals: N/A. PT evaluation and 1-2 treatment sessions only for functional mobility training using recommended AD and for HEP instruction. Plan of Care/Treatment Plan: N/A. PT evaluation and 1-2 treatment session only for functional mobility training using recommended AD and for HEP instruction. DISCHARGE RECOMMENDATIONS: [] Home with no services [] [] Home with services [specify] [X] Home with outpatient PT. Home when medically cleared by orthopedic surgeon. Will benefit from outpatient PT services in order to optimize functio nal mobility outcomes and facilitate return to independent community ambulation without an assistive device. [] SNF for continued rehabilitation [] [] [facility] [] [] SNF versus LTC based on ability to participate and progress [] TREATMENT CODE/TIME: 72714 x 20 minutes, 59000 x 50 minutes beginning at 14:46 PM. Thank you for the opportunity to participate in the care of this patient. Sugey Canales PT, DPT, CLT [facility] [place], [place]
== END 2021-12-13 16:44 | disposition home or self-care (01) ==
PROVIDERS: PCP Family Medicine; Visit Provider Student in an Organized Health Care Education/Training Program
PROC: (CPT 27130; principal; 2021-12-13 11:15)
DX: M16.11 Unilateral primary osteoarthritis, right hip (principal); I12.9 Hypertensive chronic kidney disease with stage 1 through stage 4 chronic kidney disease, or unspecified chronic kidney disease; N18.9 Chronic kidney disease, unspecified; I45.10 Unspecified right bundle-branch block
CPT/HCPCS: 20985; 27130; C1776; 97162; 97530; 73501; J0690; J1100; J2405; J2704

== ENCOUNTER 2021-12-26 14:17 | Outpatient (CLI) | payer MEDICARE, OTHER, SELFPAY ==
--- NOTE | 2021-12-26 14:00 | DI.RAD_ITS ---
Exam(s) XR HIP RT COMPLETE AP PELVIS EXAM: XR HIP RT COMPLETE AP PELVIS CLINICAL HISTORY: R FRANCESCO. TECHNIQUE: 2D digital imaging was performed. COMPARISON: CR XR HIP RT COMPLETE AP PELVIS from 09/09/2021 FINDINGS: Two views: There has been interval right hip arthroplasty. Position alignment of the components of prosthesis a ppears satisfactory with no fracture or loosening evident. There is moderate narrowing of the superi or aspect of the opposite-left hip superior joint space. IMPRESSION: DATA REPOSITORY: RADIATION DOSE DELIVERED:
== END 2021-12-26 14:18 | disposition home or self-care (01) ==
LOC: DIORS 14:18
PROVIDERS: PCP Family Medicine; Referring Provider Family Medicine; Visit Provider Physician Assistant
DX: Z96.641 Presence of right artificial hip joint (principal); Z47.1 Aftercare following joint replacement surgery
CPT/HCPCS: 73502

== ENCOUNTER → 2022-01-23 09:28 | Outpatient (BNVA) | payer MEDICARE, OTHER, SELFPAY | PROVIDERS: PCP Family Medicine; Referring Provider Family Medicine; Visit Provider Physician Assistant | DX: Z47.1 Aftercare following joint replacement surgery (principal); Z96.641 Presence of right artificial hip joint ==

== ENCOUNTER 2022-03-22 04:13 | Outpatient (CLI) | payer MEDICARE, OTHER, SELFPAY ==
[2022-03-22 12:34] LABS: Abs Immature Grans 0.03 10^3/uL (0.0-0.06); Absolute Basophil Count 0.08 10^3/uL (0.0-0.2); Absolute Lymphocyte Count 1.39 10^3/uL (1.2-3.4); Absolute Monocyte Count 0.79 10^3/uL (0.1-0.8); Absolute Neutrophil Count 3.19 10^3/uL (1.2-6.7); Basophils % 1.4; Eosinophils % 3.5; HGB 12.3 g/dL (13.5-17.5); Immature Grans % 0.5; Lymphocytes % 24.5; MCH 28.3 pg (27.0-33.0); MCHC 32.4 % (32.0-36.0); MCV 87 fL (80-95); Monocytes % 13.9; Neutrophils % 56.2; Platelet Count 511 10^3/uL (130-400); RBC 4.35 10^6/uL (4.36-5.78); RDW 13.1 % (11.8-14.1); RDW-SD 41.9 fL; WBC 5.68 10^3/uL (4.4-10.8)
[2022-03-22 13:02] LABS: ALT 39 U/L (16-63); AST 40 U/L (15-37); Albumin 4.4 g/dL (3.4-5.0); Alkaline Phosphatase 61 U/L (46-116); BUN 31 mg/dL (7-18); Bilirubin, Total 0.4 mg/dL (0.2-1.0); CREATININE 1.6 mg/dL (0.70-1.30); Calculated LDL 113 mg/dL (<100); Chloride 102 mmol/L (98-107); Cholesterol 196 mg/dL (<200); Estimated GFR 45.21 (mL/min/1.73m2); Glucose 105 mg/dL (74-106); HDL Cholesterol 41 mg/dL (40-60); Potassium 4.2 mmol/L (3.5-5.1); Sodium 137 mmol/L (136-145); Total Protein 7.8 g/dL (6.4-8.2); Triglyceride 212 mg/dL (<150)
[2022-03-23 09:58] LABS: Hepatitis C Ab w Rflx HCV PCR Negative (Negative)
== END 2022-03-22 04:14 | disposition home or self-care (01) ==
LOC: LOS 04:13
PROVIDERS: PCP Family Medicine; Visit Provider Family Medicine
DX: I10 Essential (primary) hypertension (principal); Z00.00 Encounter for general adult medical examination without abnormal findings; E78.5 Hyperlipidemia, unspecified; Z13.6 Encounter for screening for cardiovascular disorders; D64.9 Anemia, unspecified
CPT/HCPCS: 36415; 80053; 80061; 86803; 85025

== ENCOUNTER 2022-12-04 12:51 | Outpatient (CLI) | payer MEDICARE, OTHER, SELFPAY ==
--- NOTE | 2022-12-04 08:45 | DI.RAD_ITS ---
Exam(s) XR HIP RT AP LAT ONLY EXAM: XR HIP RT AP LAT ONLY CLINICAL HISTORY: annual f/u s/p R FRANCESCO. TECHNIQUE: 2D digital imaging was performed. Two images were obtained. AP and lateral views were ob tained. COMPARISON: CR XR HIP RT COMPLETE AP PELVIS from 12/26/2021 FINDINGS: BONES: There are stable post operative changes of a right total hip replacement present. No fracture or dislocation. JOINTS: The orthopedic hardware is in good position. No evidence of hardware loosening. SOFT TISSUE: Normal. IMPRESSION: Stable postoperative changes. DATA REPOSITORY: RADIATION DOSE DELIVERED:
== END 2022-12-04 12:52 | disposition home or self-care (01) ==
LOC: DIORS 12:51
PROVIDERS: PCP Family Medicine; Referring Provider Family Medicine; Visit Provider Student in an Organized Health Care Education/Training Program
DX: Z47.1 Aftercare following joint replacement surgery (principal); Z96.641 Presence of right artificial hip joint
CPT/HCPCS: 99213; 73502

== ENCOUNTER 2022-12-29 10:27 | Outpatient (CLI) | payer MEDICARE, OTHER, SELFPAY ==
--- NOTE | 2022-12-29 10:10 | DI.RAD_ITS ---
Exam(s) XR KNEE RT 3V AP,LAT,LESLIE EXAM: XR KNEE RT 3V AP,LAT,LESLIE CLINICAL HISTORY: right knee pain. TECHNIQUE: 2D digital imaging was performed. COMPARISON: CR XR KNEE RT 3V AP,LAT,LESLIE from 01/20/2021 FINDINGS: 3 views No evidence of fracture. Small amount of increased joint fluid. On the weight-bearing view there is now advanced narrowing of the lateral compartment, more so than previous. Medial compartment mainta ins normal height but exhibits chondrocalcinosis. Bone density normal. No osseous lesions. Some vascular calcification is noted in the upper popliteal artery IMPRESSION: Degenerative narrowing of the lateral compartment. No osteophytes. Mild chondrocalcinosis. DATA REPOSITORY: RADIATION DOSE DELIVERED:
--- NOTE | 2022-12-29 10:10 | DI.RAD_ITS ---
Exam(s) XR HIP LT COMPLETE AP PELVIS EXAM: XR HIP LT COMPLETE AP PELVIS CLINICAL HISTORY: left hip pain. TECHNIQUE: 2D digital imaging was performed. COMPARISON: CR XR HIP RT AP LAT ONLY from 12/04/2022 FINDINGS: 3 views No fractures evident. Right hip prosthesis appears stable. There is significant degenerative change s in the opposite-left hip with advanced narrowing of the superior aspect of the joint space. On the additional lateral view there are no prominent femoral head osteophytes. There is peripherally calc ified density in the soft tissues which is possibly within the buttock. Bone density is age-appropri ate. No significant osseous lesions. IMPRESSION: Significant degenerative changes in the left hip, most prominent in the superior aspect of the joint space Stable appearing right hip prosthesis. DATA REPOSITORY: RADIATION DOSE DELIVERED:
== END 2022-12-29 10:28 | disposition home or self-care (01) ==
LOC: DIORS 10:28
PROVIDERS: PCP Family Medicine; Referring Provider Family Medicine; Visit Provider Physician Assistant
DX: M25.561 Pain in right knee (principal); M25.552 Pain in left hip; M17.11 Unilateral primary osteoarthritis, right knee; M16.12 Unilateral primary osteoarthritis, left hip
CPT/HCPCS: 73562; 99213; 73502

== ENCOUNTER → 2023-03-08 12:53 | Outpatient (BNVA) | payer MEDICARE, OTHER, SELFPAY | PROVIDERS: PCP Family Medicine; Referring Provider Family Medicine | DX: M16.12 Unilateral primary osteoarthritis, left hip (principal) | CPT/HCPCS: 20611; J1040 ==

== ENCOUNTER 2023-03-13 03:43 | Outpatient (CLI) | payer MEDICARE, OTHER, SELFPAY ==
[2023-03-13 12:14] LABS: Abs Immature Grans 0.04 10^3/uL (0.0-0.06); Absolute Basophil Count 0.05 10^3/uL (0.0-0.2); Absolute Eosinophil Count 0.11 10^3/uL (0.0-0.7); Absolute Lymphocyte Count 1.87 10^3/uL (1.2-3.4); Absolute Neutrophil Count 5.02 10^3/uL (1.2-6.7); Basophils % 0.6; Eosinophils % 1.4; HCT 42.2 % (40.0-50.0); HGB 13.9 g/dL (13.5-17.5); Immature Grans % 0.5; Lymphocytes % 23.4; MCH 28.5 pg (27.0-33.0); MCHC 32.9 % (32.0-36.0); MCV 87 fL (80-95); MPV 8.7 fL (8.0-11.0); Monocytes % 11.3; Neutrophils % 62.8; Platelet Count 427 10^3/uL (130-400); RBC 4.87 10^6/uL (4.36-5.78); RDW 13.5 % (11.8-14.1); RDW-SD 42.8 fL; WBC 7.99 10^3/uL (4.4-10.8)
[2023-03-13 13:18] LABS: ALT 36 U/L (16-63); AST 24 U/L (15-37); Albumin 4.5 g/dL (3.4-5.0); Alkaline Phosphatase 68 U/L (46-116); Anion Gap 10.1 mmol/L (3-11); BUN 29 mg/dL (7-18); Bilirubin, Total 0.6 mg/dL (0.2-1.0); CO2 24.9 mmol/L (21.0-32.0); CREATININE 1.2 mg/dL (0.70-1.30); Calculated LDL 57 mg/dL (<100); Chloride 102 mmol/L (98-107); Cholesterol 152 mg/dL (<200); Estimated GFR 63.46 (mL/min/1.73m2); Glucose 101 mg/dL (74-106); HDL Cholesterol 55 mg/dL (40-60); Potassium 4.7 mmol/L (3.5-5.1); Sodium 137 mmol/L (136-145); Total Protein 7.9 g/dL (6.4-8.2); Triglyceride 204 mg/dL (<150)
[2023-03-13 14:34] LABS: Vitamin D 25 Total 30.9 ng/mL (30-100)
[2023-03-13 19:08] LABS: Parathyroid Hormone,Intact 40 pg/mL (19-88)
== END 2023-03-13 03:44 | disposition home or self-care (01) ==
LOC: LOS 03:43
PROVIDERS: PCP Family Medicine; Visit Provider Family Medicine
DX: N18.9 Chronic kidney disease, unspecified (principal); Z00.00 Encounter for general adult medical examination without abnormal findings; D64.9 Anemia, unspecified; E78.5 Hyperlipidemia, unspecified; Z13.6 Encounter for screening for cardiovascular disorders
CPT/HCPCS: 36415; 80053; 80061; 82306; 83970; 85025

== ENCOUNTER → 2023-04-26 09:59 | Outpatient (BNVA) | payer MEDICARE, OTHER, SELFPAY | PROVIDERS: PCP Family Medicine; Referring Provider Family Medicine; Visit Provider Student in an Organized Health Care Education/Training Program | DX: M16.12 Unilateral primary osteoarthritis, left hip (principal) | CPT/HCPCS: 99213 ==

== ENCOUNTER 2023-05-04 10:34 | Outpatient (CLI) | payer MEDICARE, OTHER, SELFPAY ==
--- NOTE | 2023-05-04 10:30 | RT.EKG_ITS ---
APPROVED REPORT Exam: Resting ECG Reason for Exam: hypertension Patient Location: O HR:66 bpm ECG Measurements Heart Rate 66 AXIS NE 273 P 42 QRSd 148 QRS -48 QT 408 T 79 QTc 428 Conclusion Sinus rhythm...normal P axis, V-rate 50- 99 Prolonged NE interval...NE >220, V-rate 50- 90 Right bundle branch block...QRSd>120, terminal axis(90,270) LAFB
== END 2023-05-04 10:35 | disposition home or self-care (01) ==
LOC: DI.CM 10:35
PROVIDERS: PCP Family Medicine; Visit Provider Family Medicine
DX: I10 Essential (primary) hypertension (principal)
CPT/HCPCS: 93010

== ENCOUNTER 2023-05-17 08:54 | Outpatient (RCR) | payer MEDICARE, OTHER, SELFPAY ==
--- NOTE | 2023-05-17 09:45 | HOLTER_ITS ---
APPROVED REPORT Conclusion This is a 48 hour Holter monitor Rhythm throughout was sinus with an average heart rate of 72. Minimum was 54. Maximum 106. There were occasional atrial and ventricular ectopic beats Accelerated idioventricular rhythm was present, generally during sleep There were self limited atrial runs. Longest was 10 beats in duration There was no atrial fibrillation, no high grade AV block, no pauses > 3 seconds No symptoms were reported
== END 2023-05-20 23:59 | disposition home or self-care (01) ==
LOC: CARDOPNVT 08:54
PROVIDERS: PCP Family Medicine; Visit Provider Internal Medicine Cardiovascular Disease
DX: I49.9 Cardiac arrhythmia, unspecified (principal); I10 Essential (primary) hypertension
CPT/HCPCS: 93225

== ENCOUNTER 2023-05-21 14:14 | Outpatient (RCR) | payer MEDICARE, OTHER, SELFPAY | END 2023-06-19 23:59 | disposition home or self-care (01) | LOC: CARDOPNVT 14:14 | PROVIDERS: PCP Family Medicine; Visit Provider Internal Medicine Cardiovascular Disease | DX: I49.9 Cardiac arrhythmia, unspecified (principal) | CPT/HCPCS: 93227; 93226 ==

== ENCOUNTER 2023-05-28 03:57 | Outpatient (CLI) | payer MEDICARE, SELFPAY ==
[2023-05-28 11:26] LABS: HCT 37.7 % (40.0-50.0); HGB 12.5 g/dL (13.5-17.5); MCH 29.3 pg (27.0-33.0); MCHC 33.2 % (32.0-36.0); MCV 88 fL (80-95); MPV 8.4 fL (8.0-11.0); Platelet Count 400 10^3/uL (130-400); RBC 4.27 10^6/uL (4.36-5.78); RDW 12.7 % (11.8-14.1); RDW-SD 41.1 fL; WBC 7.85 10^3/uL (4.4-10.8)
[2023-05-28 12:51] LABS: Anion Gap 9.4 mmol/L (3-11); BUN 33 mg/dL (7-18); CO2 27.6 mmol/L (21.0-32.0); CREATININE 1.2 mg/dL (0.70-1.30); Chloride 104 mmol/L (98-107); Estimated GFR 63.46 (mL/min/1.73m2); Glucose 115 mg/dL (74-106); Potassium 4.6 mmol/L (3.5-5.1); Sodium 141 mmol/L (136-145)
== END 2023-05-28 03:58 | disposition home or self-care (01) ==
LOC: LBO 03:57
PROVIDERS: PCP Family Medicine; Visit Provider Student in an Organized Health Care Education/Training Program
DX: M16.12 Unilateral primary osteoarthritis, left hip (principal); Z01.818 Encounter for other preprocedural examination
CPT/HCPCS: 36415; 80048; 85027

== ENCOUNTER 2023-06-06 05:53 | Day surgery (SDC) | payer MEDICARE, OTHER, SELFPAY ==
[2023-06-06] VITALS (10 sets, daily range): BP systolic 98–143; BP diastolic 49–73; PULSE 66–83; RESP 15–20; TEMP 36.4–36.7; O2SAT 91–99; BMI 26.4
[2023-06-06] MEDS: Celecoxib 200 MG CAP 400 MG PO (06:31)
[2023-06-06] MEDS: Acetaminophen 500 MG TAB 1000 MG PO (06:31)
--- NOTE | 2023-06-06 06:44 | ANES.PREOP_ITS ---
General Info Date of Service Date Performed: 06/06/23 Height: 5 ft 1.5 in Weight: 64.5 kg Body Mass Index (BMI): 26.4 Surgical Procedure: Operation Date: 06/06/23 07:50 Proposed Procedure Side Surgeon p Hip Total Hip Anterior, Corail Left Antoine Joseph MD Meds Allergies and Home Medications Allergies Allergy/AdvReac Type Severity Reaction Status Date / Time hydrochlorothiazide AdvReac Intermediate hypercal Verified 06/06/23 06:13 Home Medication Medication Instructions Recorded multivitamin with minerals 1 ea PO DAILY 11/10/15 (Multiple Vitamin-Minerals tablet) acetaminophen 500 mg tablet 1,000 mg (2 x 500 mg) PO Q8H PRN 12/13/21 pain #90 tabs amlodipine 10 mg tablet 10 mg PO DAILY #90 tabs 03/02/23 oxybutynin chloride 5 mg tablet 5 mg PO QHS #90 tabs 03/02/23 rosuvastatin 40 mg tablet 40 mg PO DAILY #90 tabs 03/02/23 omeprazole 20 mg capsule,delayed 20 mg PO DAILY #30 caps 04/18/23 release terazosin 2 mg capsule 2 mg PO QHS #30 caps 05/04/23 losartan 100 mg tablet 100 mg PO DAILY #90 tabs 05/14/23 Current Visit Medications: Current Medications Generic Name Dose Route Start Last Admin Trade Name Gibsonq PRN Reason Stop Dose Admin Acetaminophen 1,000 mg 06/06/23 06:00 06/06/23 06:31 Acetaminophen 500 Mg Tab PO 06/06/23 23:59 1,000 mg PREOP BLANCA Administration Celecoxib 400 mg 06/06/23 06:00 06/06/23 06:31 Celecoxib 200 Mg Cap PO 06/06/23 23:59 400 mg PREOP BLANCA Administration Ringer's Solution 1,000 mls @ 80 mls/hr 06/06/23 06:00 IV 06/06/23 23:59 INFUSION BLANCA Cefazolin Sodium/Dextrose 2 gm in 50 mls @ 100 mls/hr 06/06/23 06:00 Ancef Duplex IVPB 06/06/23 23:59 PREOP BLANCA Tranexamic Acid/Sodium Chloride 1,000 mg in 100 mls @ 600 mls/hr 06/06/23 06: 00 IVPB 06/06/23 23:59 PREOP BLANCA IV Miscellaneous Supplies 1 each 06/06/23 06:00 Iv Access IV 06/06/23 23:59 DIRECTED BLANCA Sodium Chloride 0 ml 06/06/23 06:00 Normal Saline Flush 10 Ml Syr IV 06/06/23 23:59 PRN PRN Sodium Chloride 0 ml 06/06/23 06:00 Normal Saline 10 Ml Vial IJ 06/06/23 23:59 DIRECTED PRN Sterile Water 0 ml 06/06/23 06:00 Water,Injection,Sterile 10 Ml Vial IJ 06/06/23 23:59 DIRECTED PRN PFSH Active Problems Active Problems: Problem Status Onset Code First degree atrioventricular block by electrocardiogram I44.0 Osteoarthritis of left hip M16.12 Osteoarthritis of right knee M17.11 Chronic insomnia F51.04 Anemia D64.9 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 Recovered without in hospital stay. Central retinal vein occlusion, left eye (10/06/16) [place]04/17/16[place] [facility] [place] [facility] [place] history of malignant neoplasm of prostate Internal hemorrhoids (04/17/16) 04[place]17[place] [facility] [place] Neoplasm of unspecified nature of bone, soft tissue, and skin (09/25/16) Polyp of colon (01/19/04) Sciatica of right side (09/02/14) surgery magnidottir 10/03 Ventricular tachycardia (04/18/16) Non sustained. Neg stress and echo. See cardiology consult 05/05. 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 declines these questions) Vital Signs and Lab Results Vital Signs Most Recent Vital Signs in EMR: Most Recent Vital Signs Temp Pulse Resp BP Pulse Ox 36.7 C 83 16 143/73 H 95 06/06/23 06:17 06/06/23 06:17 06/06/23 06:17 06/06/23 06:17 06/06/23 06:17 Lab Results Blood Type / Crossmatch: No Data to Display Complete Blood Count: White Blood Count 7.85 10^3/uL (4.4-10.8) 05/28/23 11:03 Red Blood Count 4.27 10^6/uL (4.36-5.78) L 05/28/23 11:03 Hemoglobin 12.5 g/dL (13.5-17.5) L 05/28/23 11:03 Hematocrit 37.7 % (40.0-50.0) L 05/28/23 11:03 Platelet Count 400 10^3/uL (130-400) 05/28/23 11:03 Complete Metabolic Panel: Sodium 141 mmol/L (136-145) 05/28/23 11:03 Potassium 4.6 mmol/L (3.5-5.1) 05/28/23 11:03 Chloride 104 mmol/L (98-107) 05/28/23 11:03 Carbon Dioxide 27.6 mmol/L (21.0-32.0) 05/28/23 11:03 BUN 33 mg/dL (7-18) H 05/28/23 11:03 Creatinine 1.2 mg/dL (0.70-1.30) 05/28/23 11:03 Est GFR (CKD-EPI 2020) 63.46 (mL/min/1.73m2) 05/28/23 11:03 Calcium 10.0 mg/dL (8.5-10.1) 05/28/23 11:03 Glucose 115 mg/dL (74-106) H 05/28/23 11:03 Liver Function Panel: No Data to Display Coagulation Panel: No Data to Display Cardiac Panel: No Data to Display Arterial Blood Gas: No Data to Display Venous Blood Gas: No Data to Display Pancreas Panel: No Data to Display Thyroid Panel: No Data to Display Infectious Disease: No Data to Display Blood Cultures: No Data to Display Toxicology Panel: No Data to Display Imaging and Studies Imaging and Studies Study information below may be from another EMR and interpreted by another provider. Please see original notes in EMR for more complete details. Stress Test Summary: 05/22/2016: Summary: 1. Myocardial perfusion imaging: No myocardial perfusion defects noted. 2. The calculated left ventricular ejection fraction after stress: 58%. 3. Stress: The target heart rate was not achieved. Echocardiogram Summary: 11/25/2021: Conclusion Normal left ventricular chamber size. Borderline concentric left ventricular hypertrophy. Ejection fraction is 55 to 60%. Wall motion is normal Normal right ventricular size and systolic function Both atria are normal in size The aortic valve is mildly sclerotic and trileaflet with mild regurgitation Normal mitral valve with mild regurgitation Normal tricuspid valve with mild regurgitation Mildly dilated ascending aorta Anesthesia Assessment and Plan Anesthesia History Personal History: No History of Anesthesia Complications Family History: No Family History of Anesthesia Complications Exercise Tolerance Exercise Tolerance: Metabolic Equivalents>4 Pertinent Negatives Pertinent Negatives: No Symptoms of GERD Cardiac & Pulmonary Exam Cardiac Exam: Normal S1/S2 Heart Sounds Pulmonary Exam: Clear Bilateral Breath Sounds Implantable Cardiac Device Does patient have a Pacemaker or an ICD?: No Airway Exam Known Difficult Airway: No Mallampati Class: 2 Mouth Opening: Normal (> 3cm) Thyromental Distance: Greater than 3 cm Neck Range of Motion: Full ROM Neck Circumference: Normal Teeth Condition: Normal Dentition ASA Classification ASA Score: ASA 2 Emergency Case?: No NPO Status NPO Status: NPO Clears >2 hours, Solids >8 hours Anesthesia Plan Resuscitation Status: Full Code Anesthesia Technique: Spinal Anesthesia Airway Planned: Natural Airway Monitors Used: Standard Monitors
[2023-06-06] MEDS: Lactated Ringers 1,000 ML 80 ML IV (06:45)
--- NOTE | 2023-06-06 07:07 | W.PM.DSUDISC ---
Date of service: 06/06/23 Time of Service: 07:07 Discharge Plan Disposition Patient Disposition: Home Condition: Good Discharge Details Reason For Visit: L THR Attending Provider: Antoine Joseph Primary Care Provider: Heidi King Home Meds and New Rx's Prescriptions: New celecoxib 200 mg capsule 200 mg PO BID Qty: 60 0RF aspirin 81 mg tablet,delayed release (DR/EC) 81 mg PO BID Qty: 60 0RF acetaminophen 500 mg tablet 1,000 mg PO TID Qty: 90 3RF dexamethasone 4 mg tablet 4 mg PO DAILY Qty: 2 0RF oxycodone 5 mg tablet 5 mg PO Q4H MDD 6 tabs PRN (Reason: pain) Qty: 20 0RF Continued terazosin 2 mg capsule 2 mg PO QHS Qty: 30 2RF Multiple Vitamin-Minerals 1 EACH tablet 1 ea PO DAILY amlodipine 10 mg tablet 10 mg PO DAILY Qty: 90 3RF oxybutynin chloride 5 mg tablet 5 mg PO QHS Qty: 90 1RF rosuvastatin 40 mg tablet 40 mg PO DAILY Qty: 90 3RF omeprazole 20 mg capsule,delayed release(DR/EC) 20 mg PO DAILY Qty: 30 3RF losartan 100 mg tablet 100 mg PO DAILY Qty: 90 3RF Discontinued acetaminophen 500 mg tablet 1,000 mg PO Q8H PRN (Reason: pain) Qty: 90 3RF Discharge Instructions Additional Instructions: Total Hip Discharge Instructions Activity: The most important activity is to walk. You should try to take short walks a few times a day. You have no restrictions on movement or positioning, but do not try to force what you do. You will find some stiffness and weakness with hip flexion (lifting your knee). Do not try to strengthen this too early, continue to practice walking and stairs and this will come. - Outpatient physical therapy can be helpful to help return you to a normal gait and improve your flexibility and strength. This can start around 2 weeks. For some patients, it?s not necessary. Usually this is determined at the time of discharge or at the first post-operative visit. - You should wear the SANJAY hose on both legs for 2 weeks. Dressing: Keep the surgical dressing in place for at least one week. After the first week it may be removed and replace with light gauze and tape or nothing. It may get wet after 3 days but avoid soaking the dressing. If it gets wet, just lightly pat dry. It is important to always keep some gauze between skin folds, especially when you are sitting. Spend some time with the wound exposed when you are lying flat as the incision does wrinkle onto itself. Medications: - You should take Tylenol and an anti-inflammatory Celebrex as your primary pain control medications. If the Celebrex is too expensive or not covered, please call the office for another alternative (Advil/Ibuprofen or Naproxen/Aleve). - You have been prescribed a stronger pain medication Oxycodone for breakthrough pain, take as needed as prescribed. - You will continue your omeprazole to help reduce stomach acid and reflux. - You have also been prescribed Decadron to help with post-operative nausea and pain. You will take this for two days starting tomorrow. - You will be taking Aspirin 81mg twice a day for DVT prevention unless instructed otherwise. - If you have constipation you should take Colace or Miralax (both [id number]). It takes most people 3-4 days to have a bowel movement. Follow-up: 2 weeks If you have any acute concerns or questions, please do not hesitate to contact the office at [phone]. You may contact Dr. Joseph with any questions after hours through the hospital at [phone] or on his cell phone at [phone]. Referrals: Antoine Joseph MD [ [facility] STAFF PHYSICIAN] - Equipment/Supplies: Walker Activity:: Activity as Tolerated Shower/Bathe:: 72 hours Diet:: As Tolerated DS: Diagnosis Discharge Diagnosis (1) Osteoarthritis of left hip: Status: Acute
[2023-06-06] MEDS: ceFAZolin 2 GM/50 ML BAG IVPB (07:34)
[2023-06-06] MEDS: TRANEXAMIC ACID/SOD. CHL. 1,000 MG/100 ML BAG 600 MG IVPB (07:53)
--- NOTE | 2023-06-06 08:50 | DI.RAD_ITS ---
Exam(s) XR HIP LT IN OR EXAM: XR HIP LT IN OR CLINICAL HISTORY: OSTEOARTHRITIS LEFT HIP. TECHNIQUE: 2D and realtime digital imaging was performed. COMPARISON: CR XR HIP LT COMPLETE AP PELVIS from 12/29/2022 FINDINGS: Hard copy image shows placement of a left hip prosthesis. The alignment appears satisfactory. Please see procedure note for details. Fluoro time: 23.7seconds RADIATION DOSE DELIVERED: Ka,r=2.2 mGy
[2023-06-06] MEDS: fentaNYL 100 MCG/2 ML VIAL IVP ×2 (09:44→09:50)
--- NOTE | 2023-06-06 10:46 | W.PM.OP ---
Date of service: 06/06/23 Time of Service: 08:05 Operative Note Operative Note DATE OF PROCEDURE: 06/06/23 PRE-OP DIAGNOSIS: Left Hip Osteoarthritis POST-OP DIAGNOSIS: same PROCEDURE: Left Anterior Total Hip Arthroplasty with Intraoperative Navigation SURGEON: Antoine Joseph VEHICLE WASHER: James Smart ANESTHESIA TYPE: Spinal Refer to Anesthesia Record ESTIMATED BLOOD LOSS: 200 PATHOLOGY: none sent TOURNIQUET TIME: 0 COMPLICATIONS: None Patient was transported to: PACU Patient's condition: stable Implants: 1. Depuy Albany Acetabular Component, 50mm 2. Depuy Acetabular Liner, [id number] 3. Depuy Corail Standard 125 degree Collared Femoral Stem, Size 11 4. Depuy Altrx Ceramic Femoral Head, Size 32+5mm Indications: I have seen Abiel in clinic for symptoms of hip arthritis, confirmed with radiographic findings. He has exhausted nonoperative methods and was having significant limitations in daily function and desired better function and less pain. I discussed the technical details of a hip replacement. I explained the risks of the procedure to include, but not limited to, bleeding, infection, pain, stiffness, fracture, damage to nerves and vessels, damage to muscles and tendons, loosening, instability, leg length inequality, need for repeat procedure, blood clot and cardiopulmonary demise. Despite these risks, Abiel elected to proceed. Findings: There was significant signs of arthritis throughout the hip, with complete chondromalacia of the superior femoral head and superior acetabulum. Procedure Description: Abiel was greeted in the preoperative holding area where the correct side was identified and marked. The consent was reviewed with the patient and signed. The history and physical was updated. All questions were answered. He was taken back to the operating room. A spinal anesthestic was then administered. The feet were wrapped with cast padding and Coban and then placed into the boot liners and then into the boots. Care was taken to protect the skin and make sure the heels were fully down and the boots were stable. The patient was then positioned onto the HANA table. Both legs were held in a neutral position. SCDs were applied. The patient was then slid down onto a peroneal post. Prophylactic antibiotics in the form of Cefazolin were administered. 1g of Tranxemic Acid was given intravenously within 30 minutes of incision. The left leg was then prepped with Chloraprep and draped in a standard fashion. A second prep with Chloraprep was performed prior to placement of a shower-curtain type drape with Iodine impregnated skin protection. A timeout to confirm correct identity, side and site, procedure, allergies, anesthesia, and medical concerns was performed. An obliquely oriented incision was made starting lateral to the ASIS and running distal over the Tensor Fascia Tiesha (TFL) muscle belly toward the fibular head, approximately 10cm. The skin and soft tissue was dissected sharply, through Vickie?s fascia, and to the fascia of the TFL. With the fascia and superior border of the IT band identified, the fascia was incised with a new knife just above any perforators from the IT band. The TFL muscle belly was bluntly dissected away from the fascia and moved laterally. The fat between TFL and rectus was identified to ensure the dissection was not within the TFL. Blunt dissection created space between abductors and the capsule and retractor was placed over the lateral femoral neck. The fibers of the rectus femoris tendon were identified and these were freed from the anterior capsule. A second cobra retractor was placed around the medial femoral neck. The TFL was further retracted laterally to show the deep fascia. Careful dissection through this layer identified three main crossing vessels of the lateral femoral circumflex. These were cauterized in multiple locations and then cut without any noticeable bleeding. The TFL was further released bluntly from the deep fascia to expose anterior hip capsule and fat The soft tissue orthopaedic retractor was then placed beneath the TFL and against sartorius and medial soft tissues to protect and retract the soft tissues. A T-capsulotomy was then performed starting at the superior lateral acetabulum and moving distally to the intertrochanteric ridge. These capsular flaps were tagged with a No. 1 Ethibond and elevated from within. The capsular flaps were released to the shoulder of the lateral neck and to the lesser trochanter to give excellent visualization of the proximal femur. A neck osteotomy was performed using an oscillating saw based on preoperative templates. This cut started in the shoulder and of the lateral neck and exited medially. The saw was at all times directed medially to avoid injury to the greater trochanter. Gross traction was applied to the leg and the osteotomy opened. The femoral head was removed with a corkscrew, making sure to protect the TFL on its exit. Traction was released after head removal. This was measured on the back table to determine the starting reamer size. Portions of the rectus obscuring visualization were minimally elevated off the superior acetabulum. An anterior retractor was placed over the anterior wall between capsule and labrum and attached to the Gripper retraction system. The femur was rotated to 90 degrees and medial capsule was fully released until the lesser trochanter was palpable and visible; the femur was returned to 30 degrees. A posterior retractor was placed similarly between capsule and labrum. This provided excellent visualization. The contents of the cotyloid fossa were removed with electrocautery and the labrum was removed with a knife. There was significant chondromalacia of the superior acetabulum. Acetabular reaming began with a 46mm reamer. This first reaming was directed anterior to posterior and medial to get down to the true floor. This was inspected and reamed until the true floor was reached. The anterior retractor was then released and entry and exit was provided by traction on the capsular flaps. I then reamed sequentially up to a 50mm reamer where good fit was obtained. The larger reamers were oriented based on anatomical reference of the anterior and lateral ferreira to ensure proper abduction and anteversion. Positioning and size was confirmed with the fluoroscopy. A 50mm Depuy [place] acetabular component was selected. The deep tissues were irrigated. The acetabular component was then impacted in a position of about 40-45 degrees of abduction and 15-20 degrees of anteversion, using the patient?s anatomy as the ultimate landmark. Fluoroscopy was used to confirm this. There was excellent supervisor rice milling of the acetabular component and the inserting handle was removed. The acetabular liner, Depuy [id number] polyethylene liner, was inserted and lined up with the tines of the acetabular component. There was no soft tissue interposition. The liner was then impacted into position and confirmed to be well-seated. A portion of the hal-articular cocktail was then injected around the acetabulum into the capsule and periosteum. This cocktail consisted of 123mg of Ropivacaine, 0.25mg of Epinephrine, 0.04mg of Clonidine, and 15mg of Ketorolac, diluted to 50cc. The leg was rotated to 120 degrees. Any remaining medial capsule was released until the lesser trochanter was easily palpable. A retractor was placed medially. The lateral capsule was further released into the shoulder to allow access to the greater trochanter. A Boudreaux retractor was placed over the greater trochanter which allowed the trochanter to flip in front of the capsule for excellent exposure. The leg was brought down into maximal extension and 20 degrees of adduction while ensuring there was no impingement on the acetabulum. Any remnant capsule within the trochanter was released. Piriformis and obturator externis were identified and protected. There was excellent access to the proximal femur. The lateral neck remnant was removed with a rongeur. A blunt canal probe was used to identify the canal and trajectory for later broaching. A box osteotome initiated the broach course. A small curved rasp and a curved curette were used to work laterally. Broaching then began with a size 8 Corail broach. This was inserted manually around the trochanter and into the canal before mallet blows. The broach was seated to a few millimeters below the cut level based on the neck cut and the preoperative template. Sequential broaching was continued with the [employer] pneumatic broaching device until a tight fit was obtained with good rotational control of the femur. A trial standard neck was inserted along with a +1 trial head. The leg was brought out of extension and adduction and then reduced with traction and internal rotation. The leg was stable anteriorly in a position of 30 degrees of extension and 90 degrees of external rotation. Fluoroscopy was used to ensure there was no fracture and the stem was seated well. Leg lengths were checked with an AP pelvis and pelvic reference points. Euphoria App navigation system was used to confirm appropriate positioning and leg length and offset. This undercorrected the offset and overcorrected the leg length. Therefore I switched to a 125 standard neck with a +5 head and advanced the stem 3-4mm. Once content with the desired offset and leg lengths, the leg was brought back into extension, external rotation and adduction. The periosteum and surrounding tissue was injected with remaining portion of the hal-articular cocktail. The proximal femur was irrigated as well as the deep tissues. The Depuy Corail standard 125 degree collared stem, size 11, was then manually inserted into the proximal femur making sure to control rotation. It was then malleted into position with light blows, giving breaks to allow bone expansion and decrease risk of fracture. The stem did seem to set up approximately 1 to 2 mm. The selected Depuy Altrx Ceramic Head, size 32+5mm, was then placed onto the clean and dry trunnion and secured with impaction onto the tapered fit. The leg was brought back out of extension and adduction and reduced with traction and internal rotation. Stability was confirmed with no shuck at 90 degrees of external rotation and 30 degrees of extension. No impingement through range of motion arc. Final x-ray images were obtained with fluoroscopy to confirm adequate positioning and no intraoperative fracture. The deep tissues were thoroughly irrigated with Surgiphor, betadine solution. This was allowed to sit in the wound for 3 minutes before being thoroughly irrigated out with normal saline. The capsule was then reapproximated with the previously placed Ethibond sutures. The TFL fascia was finally closed with a No. 2 Stratafix, barbed suture. Deep tissues were then reapproximated with 0 Vicryl and a running 2-0 Vicryl. The skin was closed with a running 4-0 Monocryl in a subcuticular fashion. This was reinforced with skin glue. A Mepilex silver dressing was applied. At the end of the case, all counts were correct. Abiel was transferred to the hospital bed without difficulty and suffering no apparent complication. Abiel has a good prognosis. Physical therapy will start today and without restrictions, weight-bearing as tolerated. Aspirin 81mg BID will be used for DVT prophylaxis.
[2023-06-06] MEDS: oxyCODONE 5 MG TAB PO (10:47)
--- NOTE | 2023-06-06 11:31 | PT.INIE ---
PT Notes Visit Reasons: L THR Physical Therapy Day Surgery Initial Evaluation Date: 06/06/2023 Referring Doctor: LOLA Hess PT Orders: PT CONSULT: S/P Ortho surgery Precautions: WBAT on L LE with AD. Patient Profile/Admitting Diagnosis: Abiel is a 73-year-old male with degenerative joint disease of the L hip and is status post anterior L total hip arthroplasty on postoperative day 0. PMHX: Medical History Aspiration pneumonia of left lower lobe due to vomit (04/18/16) during colonoscopy. Recovered without in hospital stay. 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 Neg stress and echo. See cardiology consult 05/05. Benign prostatic hypertrophy without urinary obstruction Generalized osteoarthritis Surgical History History of total right hip replacement (12/13/21) Status post replacement of right shoulder joint (~2018) Status post replacement of left shoulder joint (07/26/16) Colonoscopy - MAC (04/17/16) 07/2004Biopsy, Soft Tissue (10/03/17) trunk Back Surgery for pinched nerve Social History/Home Situation: Lives with Yany in a private home with 3 steps to enter with a rail on the left side going up. There is an alternate entrance through the cellar with a flight of steps with rails on both sides. Independent with all aspects of ADLs prior to surgery. Equipment Owned/DME: [facility] Subjective: 4-5/10 pain in the L hip, 2-3/10 with walking. Denied headache, chest pain, and lightheadedness throughout session. Objective: General Observation: Resting in bed. TEDS to B legs. Cold pack to right hip. Yany present throughout evaluation. Mental Status: Alert and oriented x 4 Pain: As above ROM: Right Lower Extremity: Hip flexion WFL. Hip abduction WFL. Knee flexion WFL. Ankle dorsiflexion WFL. Ankle plantarflexion WFL. Left Lower Extremity: Hip flexion WFL. Hip abduction WFL. Knee flexion WFL. Ankle dorsiflexion WFL. Ankle plantarflexion WFL. Strength: Right Lower Extremity: Hip flexors 5/5. Hip abductors 5/5. Knee flexors 5/5. Knee extensors 5/5. Ankle dorsiflexors 5/5. Ankle plantarflexors 5/5. Left Lower Extremity:Hip flexors 4/5. Hip abductors 4/5. Knee flexors 5/5. Knee extensors 4/5. Ankle dorsiflexors 5/5. Ankle plantarflexors 5/5.H Sensation: Intact as to pain and light pressure in bilateral lower extremities. Bed Mobility/Transfers: Minimal cueing provided for use of B hands as needed for support, movement sequence, AD management, and posture to reduce fall risk and minimize pain report Supine to sit standby assist Sit to stand contact-guard assist Stand to sit standby assist Bed to chair standby assist Gait: Facilitated safe and correct performance of level surface ambulation covering a distance of 150 feet using front wheeled walker with standby assist of PT and wheelchair follow of nurse Hinkle for safety. Reciprocal swing through heel-toe gait pattern seen. Minimal verbal cueing provided for correct gait pattern, AD management, and posture. Stairs: Up and down 3 x 4 inch steps and 2 x 6 inch steps while holding onto a rail with 1 hand and a single-point cane with the other hand with step-over pattern with standby assist provided with minimal verbal cueing provided for correct gait pattern, hand placement, AD management, and posture to reduce fall risk and minimize pain report. Balance: Static Sitting: Normal Dynamic Sitting: Normal Static Standing: Fair Dynamic Standing: Fair Special Tests: Mobility Limitations Standardized Measure [facility] AM-PAC 6 clicks Basic Mobility Inpatient Short Form: Raw Score: 23 CMS Score: 11% deficit Informed Consent/Education: Patient instructed in purpose of PT consult. Education and training on initial set of exercises that can be done at home have been completed with patient and patient's . Trained patient with correct performance of exercises below to maximize motor control, joint flexibility, soft tissue extensibility of the L hip musculature to facilitate return to independent functional mobility performance. Access Code: [email or web address] URL: [email or web address] Date: 06/05/2022 Prepared by: Sugey Canales Exercises - Gluteal Sets - 1 x daily - 7 x weekly - 1 sets - 10 reps - 5 hold - Supine Heel Slide - 1 x daily - 7 x weekly - 1 sets - 10 reps - 5 hold - Supine Ankle Pumps - 1 x daily - 7 x weekly - 1 sets - 10 reps - 5 hold - Seated March - 1 x daily - 7 x weekly - 1 sets - 10 reps - 5 hold - Seated Long Arc Quad - 1 x daily - 7 x weekly - 1 sets - 10 reps - 5 hold Assessment: Patient requires the use of a front wheeled walker for all mobility ADL performance to maximize independence and reduce fall risk. Patient presents with clinical signs and symptoms consistent with current/admitting diagnoses that have resulted to mobility limitations, gait instability, generalized weakness, and impairment of motor control as demonstrated by the following impairment level findings: 1. Decreased strength to left hip major muscle groups 2. Impaired standing balance Impairments are contributing to the following functional limitations: 1. Inability to safely ambulate without assistive device 2. Increase completion time for mobility ADL performance 3. Increased fall risk Patient is assessed as a 83282 moderate complexity based on the following: History: 71-year-old male with impairment level findings, functional limitations, and past medical history as indicated above Examination: Demonstrable impairment in strength, balance, and mobility level with underlying impairments and functional limitations as documented above Presentation: Evolving Decision Makin moderate Complexity Goals: N/A. PT evaluation and 1-2 treatment sessions only for functional mobility training using recommended AD and for HEP instruction. Plan of Care/Treatment Plan: N/A. PT evaluation and 1-2 treatment session only for functional mobility training using recommended AD and for HEP instruction. DISCHARGE RECOMMENDATIONS: [] Home with no services [] [] Home with services [specify] [X] Home with outpatient PT. Home when medically cleared by orthopedic surgeon. Will benefit from outpatient PT services in order to optimize functional mobility outcomes and facilitate return to independent community ambulation without an assistive device. [] SNF for continued rehabilitation [] [] [facility] [] [] SNF versus LTC based on ability to participate and progress [] TREATMENT CODE/TIME: 60705 x 20 minutes for 1 unit, 69091 x 13 minutes for 1 unit (11:31-12:04). Thank you for the opportunity to participate in the care of this patient. Sugey Canales PT, DPT, CLT [facility] [place], [place]
--- NOTE | 2023-06-06 12:13 | W.ANESPOSTOP ---
Postoperative Evaluation Date, Time and Location Date Performed: 06/06/23 Time Performed: 12:13 Patient Location: Day Surgery Unit Vital Signs Most Recent Imported Vital Signs: Most Recent Vital Signs Temp Pulse Resp BP Pulse Ox 36.4 C L 71 16 134/64 96 06/06/23 10:39 06/06/23 10:39 06/06/23 10:39 06/06/23 10:39 06/06/23 10:39 Pain Score Most Recent Pain Score: Most Recent Pain Score Pain Level 8 06/06/23 10:39 Assessment Mental Status: Awake (Alert & Oriented to Patient Baseline) Airway and Respiratory Function: Patent airway with normal (patient baseline) respiratory exam Cardiovascular Function: Hemodynamically Stable Hydration Status: Adequately Hydrated Nausea & Vomiting: No Nausea or Vomiting Pain: Pain is tolerable per patient Peripheral Nerve Block: Patient did not receive a nerve block
== END 2023-06-06 12:35 | disposition home or self-care (01) ==
PROVIDERS: PCP Family Medicine; Visit Provider Student in an Organized Health Care Education/Training Program
PROC: (CPT 27130; principal; 2023-06-06 07:30)
DX: M16.12 Unilateral primary osteoarthritis, left hip (principal); I44.0 Atrioventricular block, first degree; D64.9 Anemia, unspecified; K21.9 Gastro-esophageal reflux disease without esophagitis; I10 Essential (primary) hypertension; E78.5 Hyperlipidemia, unspecified
CPT/HCPCS: 20985; 27130; C1776; 97162; 97530; 73501; J0690; J1100; J2001; J2250; J2401; J2405; J2704; J3010

== ENCOUNTER 2023-06-21 15:38 | Outpatient (CLI) | payer MEDICARE, OTHER, SELFPAY ==
--- NOTE | 2023-06-21 10:00 | DI.RAD_ITS ---
Exam(s) XR HIP LT COMPLETE AP PELVIS EXAM: XR HIP LT COMPLETE AP PELVIS CLINICAL HISTORY: 1st post op s/p L FRANCESCO. TECHNIQUE: 2D digital imaging was performed. Two views. COMPARISON: CR XR HIP LT COMPLETE AP PELVIS from 12/29/2022 XA XR HIP LT IN OR from 06/06/2023 FINDINGS: There are bilateral hip prostheses. No change in alignment. No abnormal surrounding bony lucencies. IMPRESSION: Stable appearance of bilateral hip prostheses. DATA REPOSITORY: RADIATION DOSE DELIVERED:
== END 2023-06-21 15:39 | disposition home or self-care (01) ==
LOC: DIORS 15:39
PROVIDERS: PCP Family Medicine; Referring Provider Family Medicine; Visit Provider Student in an Organized Health Care Education/Training Program
DX: Z96.642 Presence of left artificial hip joint (principal); Z47.1 Aftercare following joint replacement surgery
CPT/HCPCS: 73502

== ENCOUNTER → 2023-07-20 08:55 | Outpatient (BNVA) | payer MEDICARE, OTHER, SELFPAY | PROVIDERS: PCP Family Medicine | DX: Z47.1 Aftercare following joint replacement surgery (principal); Z96.642 Presence of left artificial hip joint ==

== ENCOUNTER → 2023-10-04 11:33 | Outpatient (BNVA) | payer MEDICARE, OTHER, SELFPAY | PROVIDERS: PCP Family Medicine; Referring Provider Family Medicine; Visit Provider Physical Therapy Assistant | DX: K21.9 Gastro-esophageal reflux disease without esophagitis (principal) | CPT/HCPCS: 99213 ==

== ENCOUNTER → 2023-11-22 08:59 | Outpatient (BNVA) | payer MEDICARE, OTHER, SELFPAY | PROVIDERS: PCP Family Medicine; Referring Provider Family Medicine; Visit Provider Surgery | DX: K21.9 Gastro-esophageal reflux disease without esophagitis (principal); D64.9 Anemia, unspecified | CPT/HCPCS: 99213 ==

== ENCOUNTER 2023-12-14 01:47 | Outpatient (CLI) | payer MEDICARE, OTHER, SELFPAY ==
[2023-12-14 10:36] LABS: Reticulocyte 1.5 % (0.5-2.4)
[2023-12-14 11:16] LABS: Ferritin 27 ng/mL (26-388); Vitamin B12 759 pg/mL (193-986)
[2023-12-14 11:17] LABS: Folate > 20.0 ng/mL (8.6-20.0)
[2023-12-14 11:27] LABS: LDH 197 U/L (85-227)
[2023-12-16 13:13] LABS: Haptoglobin 162 mg/dL (32-197)
== END 2023-12-14 01:48 | disposition home or self-care (01) ==
LOC: LBO 01:47
PROVIDERS: PCP Family Medicine; Visit Provider Surgery
DX: D64.9 Anemia, unspecified (principal); D50.9 Iron deficiency anemia, unspecified; K21.9 Gastro-esophageal reflux disease without esophagitis; I10 Essential (primary) hypertension; E78.5 Hyperlipidemia, unspecified; F51.04 Psychophysiologic insomnia
CPT/HCPCS: 36415; 82607; 82728; 82746; 83010; 83615; 85045

== ENCOUNTER 2024-01-08 06:12 | Day surgery (SDC) | payer MEDICARE, OTHER, SELFPAY ==
[2024-01-08 06:31] VITALS: BP 146/71; PULSE 66; RESP 16; TEMP 36.8; O2SAT 97
[2024-01-08] MEDS: Normal Saline Flush 10 ML SYR IV (06:43)
--- NOTE | 2024-01-08 07:34 | ANES.PREOP_ITS ---
General Info Date of Service Date Performed: 01/08/24 Height: 5 ft 1.5 in Weight: 65.6 kg Body Mass Index (BMI): 26.9 Surgical Procedure: Operation Date: 01/08/24 07:35 Proposed Procedure Side Surgeon p Gastroscopy Roopa Clark, DO Meds Allergies and Home Medications Allergies Allergy/AdvReac Type Severity Reaction Status Date / Time hydrochlorothiazide AdvReac Intermediate hypercal Verified 01/08/24 06:20 Home Medication ?Medication ?Instructions ?Recorded multivitamin with minerals 1 ea PO DAILY 11/10/15 (Multiple Vitamin-Minerals tablet) amlodipine 10 mg tablet 10 mg PO DAILY #90 tabs 03/02/23 losartan 100 mg tablet 100 mg PO DAILY #90 tabs 05/14/23 oxybutynin chloride 5 mg tablet 5 mg PO QHS PRN bladder spasms 08/03/23 terazosin 2 mg capsule 2 mg PO QHS #90 caps 08/03/23 rosuvastatin 40 mg tablet 40 mg PO DAILY #90 tabs 10/15/23 omeprazole 20 mg capsule,delayed 20 mg PO DAILY #30 caps 01/02/24 release Current Visit Medications: Current Medications Generic Name Dose Route Start Last Admin Trade Name Freq PRN Reason Stop Dose Admin Ringer's Solution 1,000 mls @ 80 mls/hr 01/08/24 06:00 IV 01/08/24 23:59 INFUSION BLANCA IV Miscellaneous Supplies 1 each 01/08/24 06:00 Iv Access IV 01/08/24 23:59 DIRECTED BLANCA Sodium Chloride 0 ml 01/08/24 06:00 01/08/24 06:43 Normal Saline Flush 10 Ml Syr IV 01/08/24 23:59 10 ml PRN PRN Administration Sodium Chloride 0 ml 01/08/24 06:00 Normal Saline 10 Ml Vial IJ 01/08/24 23:59 DIRECTED PRN Sterile Water 0 ml 01/08/24 06:00 Water,Injection,Sterile 10 Ml Vial IJ 01/08/24 23:59 DIRECTED PRN PFSH Active Problems Active Problems: Problem Status Onset Code Chronic anemia Acute D64.9 Microcytic anemia Acute D50.9 Osteoarthritis of right knee Acute M17.11 Chronic insomnia Acute F51.04 Anemia Chronic D64.9 Arthritis of first metatarsophalangeal (MTP) joint of left foot Acute M19.072 Nocturia Acute R35.1 Frequency of urination Acute R35.0 Depression Acute F32.9 Esophageal reflux Chronic K21.9 Gastroesophageal reflux disease Chronic K21.9 Generalized osteoarthrosis Chronic M15.9 Hyperlipidemia Chronic E78.5 Hypertension Chronic I10 Systolic murmur Chronic Medical History Medical History RBBB (04/18/16) on stress testing; done after NSVT during colonoscopy. Aspiration pneumonia of left lower lobe due to vomit (04/18/16) during colonoscopy. Recovered without in hospital stay. 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 Neg stress and echo. See cardiology consult 05/05. Benign prostatic hypertrophy without urinary obstruction Generalized osteoarthritis Surgical History Surgical History History of total left hip arthroplasty (06/06/23) History of total right hip replacement (12/13/21) Status post replacement of right shoulder joint (~2018) and left Status post replacement of left shoulder joint (07/26/16) Colonoscopy - MAC (04/17/16) 07/2004 Biopsy, Soft Tissue (10/03/17) trunk Back Surgery for pinched nerve Tobacco Smoking/Tobacco Use Status: Never Passive smoking exposure: Yes Second hand exposure: Yes Alcohol Alcohol Intake: current Alcohol intake frequency: 0-2 drinks per day Alcohol type: beer, wine and hard liquor Substance Use Substance use type: marijuana Counseling provided: none (pt. declines these questions) Details: occasionally Vital Signs and Lab Results Vital Signs Most Recent Vital Signs in EMR: Most Recent Vital Signs Temp Pulse Resp BP Pulse Ox 36.8 C 66 16 146/71 H 97 01/08/24 06:31 01/08/24 06:31 01/08/24 06:31 01/08/24 06:31 01/08/24 06:31 Lab Results Blood Type / Crossmatch: No Data to Display Complete Blood Count: No Data to Display Complete Metabolic Panel: No Data to Display Liver Function Panel: No Data to Display Coagulation Panel: No Data to Display Cardiac Panel: No Data to Display Arterial Blood Gas: No Data to Display Venous Blood Gas: No Data to Display Pancreas Panel: No Data to Display Thyroid Panel: No Data to Display Infectious Disease: No Data to Display Blood Cultures: No Data to Display Toxicology Panel: No Data to Display Imaging and Studies Imaging and Studies Study information below may be from another EMR and interpreted by another provider. Please see original notes in EMR for more complete details. Stress Test Summary: 05/22/2016: Summary: 1. Myocardial perfusion imaging: No myocardial perfusion defects noted. 2. The calculated left ventricular ejection fraction after stress: 58%. 3. Stress: The target heart rate was not achieved. Echocardiogram Summary: 11/25/2021: Conclusion Normal left ventricular chamber size. Borderline concentric left ventricular hypertrophy. Ejection fraction is 55 to 60%. Wall motion is normal Normal right ventricular size and systolic function Both atria are normal in size The aortic valve is mildly sclerotic and trileaflet with mild regurgitation Normal mitral valve with mild regurgitation Normal tricuspid valve with mild regurgitation Mildly dilated ascending aorta Anesthesia Assessment and Plan Anesthesia History Personal History: No History of Anesthesia Complications Family History: No Family History of Anesthesia Complications Exercise Tolerance Exercise Tolerance: Metabolic Equivalents>4 Pertinent Negatives Pertinent Negatives: No Symptoms of GERD (On meds for GERD. No reflux with meds.) Cardiac & Pulmonary Exam Cardiac Exam: Normal S1/S2 Heart Sounds Pulmonary Exam: Clear Bilateral Breath Sounds Implantable Cardiac Device Does patient have a Pacemaker or an ICD?: No Airway Exam Known Difficult Airway: No Mallampati Class: 2 Mouth Opening: Normal (> 3cm) Thyromental Distance: Greater than 3 cm Neck Range of Motion: Full ROM Neck Circumference: Normal Teeth Condition: Normal Dentition ASA Classification ASA Score: ASA 2 Emergency Case?: No NPO Status NPO Status: NPO Clears >2 hours, Solids >8 hours Anesthesia Plan Resuscitation Status: Full Code Anesthesia Technique: General Anesthesia Airway Planned: Natural Airway Monitors Used: Standard Monitors
[2024-01-08 07:35] VITALS: BMI 26.9
--- NOTE | 2024-01-08 08:27 | STOM_PTH ---
PATIENT: Abiel Jolley LOC: [facility] U#:[id number] AGE/SX: 73/M ROOM: RE01/08/[address]: Leonardo Crespo : 1950 BED: DIS: 01/08/2024 SPEC #: [id number] RECD: 01/08/24 12:35 STATUS: [facility] #: [id number] NIRAJ: 01/08/24 08:[address]: Leonardo rCespo DEPT: Surgical Specimen RECD BY: Keri Sheets ENTERED: 01/08/24 12:39 SP TYPE: STOMACH OTHR DR: Heidi King Tissues: 1 - STOMACH BIOPSY 2 - STOMACH BIOPSY 3 - STOMACH BIOPSY 4 - STOMACH BIOPSY 5 - ESOPHAGUS BIOPSY 6 - ESOPHAGUS BIOPSY Procedures: GROSS AND MICRO LEVEL 4 IMMUNOPEROXIDASE STAIN Comments: [id number]
[2024-01-08 08:41] VITALS: BP 109/65; PULSE 58; RESP 20; TEMP 36.3; O2SAT 93
--- NOTE | 2024-01-08 08:47 | W.ANESPOSTOP ---
Postoperative Evaluation Date, Time and Location Date Performed: 01/08/24 Time Performed: 08:47 Patient Location: Day Surgery Unit Vital Signs Most Recent Imported Vital Signs: Most Recent Vital Signs Temp Pulse Resp BP Pulse Ox 36.8 C 66 16 146/71 H 97 01/08/24 06:31 01/08/24 06:31 01/08/24 06:31 01/08/24 06:31 01/08/24 06:31 Pain Score Most Recent Pain Score: Most Recent Pain Score Pain Level 0 01/08/24 06:31 Assessment Mental Status: Awake (Alert & Oriented to Patient Baseline) Airway and Respiratory Function: Patent airway with normal (patient baseline) respiratory exam Cardiovascular Function: Hemodynamically Stable Hydration Status: Adequately Hydrated Nausea & Vomiting: No Nausea or Vomiting Pain: Pt. Denies Any Pain Peripheral Nerve Block: Patient did not receive a nerve block
--- NOTE | 2024-01-08 08:57 | ENDO_ITS ---
Date of service: 01/08/24 Time of Service: 16:37 Endoscopy Report PROCEDURE DESCRIPTION: PROCEDURES PERFORMED: 1. EGD with biopsies 2. Cold forceps polypectomy PREOPERATIVE DIAGNOSIS: GERD with esophagitis, anemia POSTOPERATIVE DIAGNOSIS: Large type III paraesophageal hernia, Pj ulcers, Alcantara's esophagus, gastric polyposis SURGEON: Trae Crespo MD INDICATION FOR PROCEDURE: 73-year-old man has long?standing acid reflux. He is not sure why but it has been for many years. He denies eating late or significant alcohol intake or significant caffeine intake. He says he has never had an upper endoscopy. He also has chronic anemia. He has symptoms despite/refractory PPI therapy at times. FINDINGS: D2/D3 = normal D1/bulb = normal - no ulcers or inflammation Pylorus = normal Antrum = normal appearance, no ulcers, cold forceps biopsies were taken to rule out H. pylori routinely Body = noninflamed, but many polyps present, biopsies taken with cold forceps technique routinely Fundus = no inflammation, but 100s of tiny polyps are present. Hiatus = large hiatal defect, there are Pj's ulcerations/erosions present where the fundus mechanically travels over the diaphragm, these were biopsied. The hernia is type III paraesophageal and is at least 5 cm from GE junction to diaphragmatic hiatus. Distal esophagus = no inflammation, no esophagitis, however there is a visible 2-3 cm strip of Alcantara's esophagus. This was biopsied with cold forceps technique. Separately I biopsied the normal?appearing esophagus mucosa separately. Mid esophagus = normal Proximal esophagus/hypopharynx/vocal cords = normal SURVEILLANCE-INTERVAL/FOLLOW-UP: Follow-up with me in the next few weeks to discuss hernia repair. Needs to stop PPI therapy because of gastric polyposis. Needs PPI therapy for both Alcantara's esophagus and stomach ulcers. Since he can not be on a PPI, he should be offered paraesophageal hernia repair. His anemia is secondary to this hernia as well - an additional indication to offer him repair. Specimens: Yes EBL: Minimal COMPLICATIONS: None Procedure in detail: The patient gave written consent and was in agreement with the indications, the potential risks as well as the benefits of the procedure. The patient was taken to the endoscopy suite and laid on their left side. Anesthesia was given which was tolerated well. We performed a timeout and we are in agreement I started the procedure. A well-lubricated endoscope was gently and carefully advanced down the esophagus, into the stomach the scope was and through the pylorus into the duodenum. The scope was then slowly withdrawn with the above-noted findin gs/interventions. The patient tolerated the procedure well.
--- NOTE | 2024-01-08 08:57 | W.PM.DSUDISC ---
Date of service: 01/08/24 Time of Service: 08:58 Discharge Plan Disposition Patient Disposition: Home Condition: Good Discharge Details Attending Provider: Leonardo Crespo Primary Care Provider: Heidi King Home Meds and New Rx's Prescriptions: No Action oxybutynin chloride 5 mg tablet 5 mg PO QHS PRN (Reason: bladder spasms) terazosin 2 mg capsule 2 mg PO QHS Qty: 90 3RF Multiple Vitamin-Minerals 1 EACH tablet 1 ea PO DAILY amlodipine 10 mg tablet 10 mg PO DAILY Qty: 90 3RF losartan 100 mg tablet 100 mg PO DAILY Qty: 90 3RF rosuvastatin 40 mg tablet 40 mg PO DAILY Qty: 90 3RF omeprazole 20 mg capsule,delayed release(DR/EC) 20 mg PO DAILY Qty: 30 3RF Discharge Instructions Additional Instructions: FINDINGS: You have a type III paraesophageal hernia. This is causing all of the issues with acid reflux. Separately, you have a bunch of stomach polyps that are a side effect of your PPI omeprazole medication. The formal recommendation, when this is found, is that you should stop the antacid medication. I think you need to have your hernia repaired to get to the bottom of all of this. I recommend following up with me in the office to discuss further. Stand Alone Forms: Anesthesia Discharge InstHumberto, Ilda Uriarte (MASOUD) Activity:: Activity as Tolerated Diet:: As Tolerated
[2024-01-08 09:05] VITALS: BP 125/72; PULSE 59; RESP 18; TEMP 37; O2SAT 95
== END 2024-01-08 09:34 | disposition home or self-care (01) ==
PROVIDERS: PCP Family Medicine; Visit Provider Student in an Organized Health Care Education/Training Program
PROC: 0DJ68ZZ Inspection of Stomach, Via Natural or Artificial Opening Endoscopic (ICD-10-PCS; CPT 43235; principal; 2024-01-08 08:15)
DX: K21.9 Gastro-esophageal reflux disease without esophagitis (principal); K44.9 Diaphragmatic hernia without obstruction or gangrene; K28.7 Chronic gastrojejunal ulcer without hemorrhage or perforation; K22.70 Barrett's esophagus without dysplasia; K31.7 Polyp of stomach and duodenum; I10 Essential (primary) hypertension; K20.90 Esophagitis, unspecified without bleeding; K29.00 Acute gastritis without bleeding
CPT/HCPCS: 43239; 00123; 88305; 88361; J2003; J2704

== ENCOUNTER → 2024-01-23 12:57 | Outpatient (BNVA) | payer MEDICARE, OTHER, SELFPAY | PROVIDERS: PCP Family Medicine; Referring Provider Family Medicine; Visit Provider Student in an Organized Health Care Education/Training Program | DX: Z48.815 Encounter for surgical aftercare following surgery on the digestive system (principal); K44.9 Diaphragmatic hernia without obstruction or gangrene | CPT/HCPCS: 99215; G2212 ==

== ENCOUNTER 2024-01-31 02:52 | Outpatient (CLI) | payer MEDICARE, OTHER, SELFPAY ==
--- NOTE | 2024-01-31 09:12 | DI.CT_ITS ---
Exam(s) CT CHEST W EXAM: CT CHEST W CLINICAL HISTORY: PreOp for PEH repair, K44.9 TECHNIQUE: Imaging Protocol: Axial computed tomography images with coronal and sagittal reformatted images were created and reviewed. Computer aided detection (CAD) was utilized. CONTRAST MATERIAL: Intravenous: Omnipaque 350 Contrast volume:70 ml. COMPARISON: CR CHEST 2 VIEWS PA,LAT from 04/17/2016 FINDINGS: Pulmonary parenchyma: No consolidation. No dominant measurable mass. Tracheobronchial tree: No bronchiectasis or mucous plugging. Mediastinum and Edith: No dominant adenopathy or fluid collection. Moderate size hiatal hernia. Pleura: No effusion. No pneumothorax. Heart: The heart is mildly dilated. Moderate coronary artery calcifications are seen. Aorta: Thoracic aorta non-dilated. Mild atherosclerotic changes. Pulmonary arteries: No gross evidence of emboli. Upper abdomen: No acute findings. Bones: Degenerative changes in the spine. Bilateral shoulder prostheses. Soft tissues: Unremarkable. IMPRESSION: Moderate size hiatal hernia. RADIATION DOSE DELIVERED: Total DLP DATA REPOSITORY: All CT scans at this facility are submitted to the National Radiology Data Registry (NRDR) Dose Index Registry (DIR) with the [employer] (ACR). RADIATION OPTIMIZATION: All CT scans at this facility use at least one of these dose optimization te chniques: automated exposure control; mA and/or kV adjustment per patient size (includes targeted exa ms where dose is matched to clinical indication); or iterative reconstruction.
[2024-01-31 14:16] LABS: CREATININE 1.5 mg/dL (0.70-1.30); Estimated GFR 48.25 (mL/min/1.73m2)
[2024-01-31] MEDS: Normal Saline - Diluent 50 ML VIAL IJ (14:43)
[2024-01-31] MEDS: Omnipaque 350 MG/ML 100 ML BTL IJ (14:44)
== END 2024-01-31 03:12 ==
LOC: DI 02:52
PROVIDERS: PCP Family Medicine; Visit Provider Student in an Organized Health Care Education/Training Program
DX: K44.9 Diaphragmatic hernia without obstruction or gangrene (principal); Z01.818 Encounter for other preprocedural examination
CPT/HCPCS: 71260; 82565; J3490

== ENCOUNTER 2024-02-01 00:31 | Outpatient (CLI) | payer MEDICARE, OTHER, SELFPAY ==
[2024-02-01] MEDS: Barium Sulfate 98% W/W 140 ML BTL PO (10:54)
[2024-02-01] MEDS: Barium Sulfate 60% W/V 355 ML BTL PO (10:55)
--- NOTE | 2024-02-01 10:55 | DI.RAD_ITS ---
Exam(s) RF BARIUM SWALLOW EXAM: RF BARIUM SWALLOW CLINICAL HISTORY: PreOp for PEH repair,PARAESOPHAGAL HERNIA,K44.9 TECHNIQUE: 2D and realtime digital imaging was performed. CONTRAST MATERIAL: Oral barium Oral water soluble contrast was administered. COMPARISON: No exams were available for comparison FINDINGS: This study was performed both standing and MANTILLA recumbent. Unfortunately, after the study was complet ed I was informed that there was an apparent malfunction with the equipment and that none of the mult iple images obtained during this examination or salvageable. The swallowing mechanism was grossly intact with no evidence of aspiration nor obvious hypertense upp er esophageal sphincter and there was no evidence of Zenker's diverticulum. There are no fixed lesio ns in the esophagus and no evidence of Schatzki ring nor achalasia. A few temporary tertiary waves w ere identified. Although less evident on the standing esophagram, the MANTILLA recumbent imaging did reveal a small-modera te size sliding-type hiatal hernia with mild associated GE reflux. IMPRESSION: 1. Small-moderate size inconsistent sliding-type hiatal hernia. No fixed lesions evident in the eso phagus. 2. Please note that due to an apparent mechanical equipment malfunction after image acquisition that there were no images from this examination able to be salvaged. 3. Incidentally noted are bilateral shoulder prostheses. RADIATION DOSE DELIVERED: gunnar Ferguson=25.4 mGy
== END 2024-02-01 00:51 ==
LOC: DI 00:32
PROVIDERS: PCP Family Medicine; Visit Provider Student in an Organized Health Care Education/Training Program
DX: K44.9 Diaphragmatic hernia without obstruction or gangrene (principal)
CPT/HCPCS: 74221; J3490

== ENCOUNTER 2024-03-04 13:10 | Observation (INO) | payer MEDICARE, SELFPAY ==
--- NOTE | 2024-03-03 18:16 | ANES.PREOP_ITS ---
General Info Date of Service Date Performed: 03/04/24 Height: 5 ft 1.5 in Weight: 65.6 kg Body Mass Index (BMI): 26.9 Surgical Procedure: Operation Date: 03/04/24 07:30 Proposed Procedure Side Surgeon p Hernia Paraesophageal Laparoscopic Leonardo Crespo MD Meds Allergies and Home Medications Allergies Allergy/AdvReac Type Severity Reaction Status Date / Time hydrochlorothiazide AdvReac Intermediate hypercal Verified 03/04/24 06:14 Home Medication ?Medication ?Instructions ?Recorded multivitamin with minerals 1 ea PO DAILY 11/10/15 (Multiple Vitamin-Minerals tablet) amlodipine 10 mg tablet 10 mg PO DAILY #90 tabs 03/02/23 losartan 100 mg tablet 100 mg PO DAILY #90 tabs 05/14/23 oxybutynin chloride 5 mg tablet 5 mg PO QHS PRN bladder spasms 08/03/23 terazosin 2 mg capsule 2 mg PO QHS #90 caps 08/03/23 rosuvastatin 40 mg tablet 40 mg PO DAILY #90 tabs 10/15/23 omeprazole 20 mg capsule,delayed 20 mg PO DAILY #30 caps 01/02/24 release Current Visit Medications: Current Medications Generic Name Dose Route Start Last Admin Trade Name Freq PRN Reason Stop Dose Admin Acetaminophen 1,000 mg 03/04/24 06:00 Acetaminophen 500 Mg Tab PO 03/04/24 23:59 PREOP BLANCA Heparin Sodium (Porcine) 5,000 units 03/04/24 06:00 Heparin 5,000 Units/Ml Vial SC 03/04/24 23:59 PREOP [facility] Ringer's Solution 1,000 mls @ 75 mls/hr 03/04/24 06:00 IV 03/04/24 23:59 INFUSION [facility] IV Miscellaneous Supplies 1 each 03/04/24 06:00 Iv Access IV 03/04/24 23:59 DIRECTED BLANCA Sodium Chloride 0 ml 03/04/24 06:00 Normal Saline Flush 10 Ml Syr IV 03/04/24 23:59 PRN PRN Sodium Chloride 0 ml 03/04/24 06:00 Normal Saline 10 Ml Vial IJ 03/04/24 23:59 DIRECTED PRN Sterile Water 0 ml 03/04/24 06:00 Water,Injection,Sterile 10 Ml Vial IJ 03/04/24 23:59 DIRECTED PRN PFSH Active Problems Active Problems: Problem Status Onset Code Paraesophageal hernia Acute K44.9 Alcantara esophagus determined by biopsy Acute 12/2023 K22.70 Chronic anemia Acute D64.9 Microcytic anemia Acute D50.9 Osteoarthritis of right knee Acute M17.11 Chronic insomnia Acute F51.04 Anemia Chronic D64.9 Arthritis of first metatarsophalangeal (MTP) joint of left foot Acute M19.072 Nocturia Acute R35.1 Frequency of urination Acute R35.0 Depression Acute F32.9 Esophageal reflux Chronic K21.9 Gastroesophageal reflux disease Chronic K21.9 Generalized osteoarthrosis Chronic M15.9 Hyperlipidemia Chronic E78.5 Hypertension Chronic I10 Systolic murmur Chronic Medical History Medical History RBBB (04/18/16) on stress testing; done after NSVT during colonoscopy. Aspiration pneumonia of left lower lobe due to vomit (04/18/16) during colonoscopy. Recovered without in hospital stay. 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 Neg stress and echo. See cardiology consult 05/05. Benign prostatic hypertrophy without urinary obstruction Generalized osteoarthritis Surgical History Surgical History Hx of shoulder replacement (B) History of total left hip arthroplasty (06/06/23) History of total right hip replacement (12/13/21) Status post replacement of right shoulder joint (~2018) and left Status post replacement of left shoulder joint (07/26/16) Colonoscopy - MAC (04/17/16) 07/2004 Biopsy, Soft Tissue (10/03/17) trunk Back Surgery for pinched nerve Tobacco Smoking/Tobacco Use Status: Never Passive smoking exposure: Yes Second hand exposure: Yes Alcohol Alcohol Intake: current Alcohol intake frequency: 0-2 drinks per day Alcohol type: beer, wine and hard liquor Substance Use Substance use type: marijuana Counseling provided: none (pt. declines these questions) Details: occasionally Vital Signs and Lab Results Vital Signs Most Recent Vital Signs in EMR: Temp Pulse Resp BP Pulse Ox 36.6 C 67 16 159/61 H 97 03/04/24 06:25 03/04/24 06:25 03/04/24 06:25 03/04/24 06:25 03/04/24 06:25 Lab Results Blood Type / Crossmatch: No Data to Display Complete Blood Count: No Data to Display Complete Metabolic Panel: No Data to Display Liver Function Panel: No Data to Display Coagulation Panel: No Data to Display Cardiac Panel: No Data to Display Arterial Blood Gas: No Data to Display Venous Blood Gas: No Data to Display Pancreas Panel: No Data to Display Thyroid Panel: No Data to Display Infectious Disease: No Data to Display Blood Cultures: No Data to Display Toxicology Panel: No Data to Display Imaging and Studies Imaging and Studies Study information below may be from another EMR and interpreted by another provider. Please see original notes in EMR for more complete details. Stress Test Summary: 05/22/2016: Summary: 1. Myocardial perfusion imaging: No myocardial perfusion defects noted. 2. The calculated left ventricular ejection fraction after stress: 58%. 3. Stress: The target heart rate was not achieved. Echocardiogram Summary: 11/25/2021: Conclusion Normal left ventricular chamber size. Borderline concentric left ventricular hypertrophy. Ejection fraction is 55 to 60%. Wall motion is normal Normal right ventricular size and systolic function Both atria are normal in size The aortic valve is mildly sclerotic and trileaflet with mild regurgitation Normal mitral valve with mild regurgitation Normal tricuspid valve with mild regurgitation Mildly dilated ascending aorta Anesthesia Assessment and Plan Anesthesia History Personal History: No History of Anesthesia Complications Family History: No Family History of Anesthesia Complications Exercise Tolerance Exercise Tolerance: Metabolic Equivalents>4 Cardiac & Pulmonary Exam Cardiac Exam: Normal S1/S2 Heart Sounds Pulmonary Exam: Clear Bilateral Breath Sounds Implantable Cardiac Device Does patient have a Pacemaker or an ICD?: No Airway Exam Known Difficult Airway: No Mallampati Class: 4 Mouth Opening: Normal (> 3cm) Thyromental Distance: Less than 3 cm Neck Range of Motion: Full ROM Neck Circumference: Normal Teeth Condition: Normal Dentition ASA Classification ASA Score: ASA 2 Emergency Case?: No NPO Status NPO Status: NPO Clears >2 hours, Solids >8 hours Anesthesia Plan Resuscitation Status: Full Code Anesthesia Technique: General Anesthesia Airway Planned: Endotracheal Tube Pain Management: Surgeon and patient request nerve block Monitors Used: Standard Monitors Preoperative Comments:: 74 yo male for paraesophageal hernia repair. Sig PMHx: HTN (amlodipine, losartan. checks BP at home and runs 130/), GERD/Barretts (omeprazole. feels well controlled), central retinal vein occlusion, never smoker, occ EtOH/cannabis. EKG: sinus, long ND, RBBB. ECHO: LVEF 55-60%, AV mild sclerosis and mild regurg. Mild MR/TR. Stress: LVEF 58%, no perfusion defects. Previous Anes: - EGD, prop, natural airway, no issues. - FRANCESCO, spinal, prop sedation, no issues. - FRANCESCO, oh 2 2a, no issues. - colo (rescue), prop, natural airway, vomited during procedure, didn't return to ER but sounds like he had a rough few weeks after pulmonary hernandez.
[2024-03-04] VITALS (30 sets, daily range): BP systolic 97–159; BP diastolic 42–99; PULSE 54–75; RESP 13–27; TEMP 36.2–36.7; O2SAT 85–97; BMI 26.9
[2024-03-04] MEDS: Acetaminophen 500 MG TAB 1000 MG PO ×3 (06:43→20:36)
[2024-03-04] MEDS: Lactated Ringers 1,000 ML 75 ML IV (06:44)
[2024-03-04] MEDS: Heparin 5,000 UNITS/ML VIAL 5000 UNITS SC ×2 (07:17→20:37)
--- NOTE | 2024-03-04 07:42 | SCONE_ITS ---
Date of service: 03/04/24 Time of Service: 07:30 Assessment and Plan Assessment and plan (1) Paraesophageal hernia: Status: Acute Assessment and plan: 74-year-old man with symptomatic and problematic type III paraesophageal hernia. We have gone over all of the procedure steps, the goals of surgery, the indications, the possible side effects/risks and we are ready to proceed. Patient has signed consent. Overall plan: Laparoscopic paraesophageal hernia repair with fundoplication History of Present Illness Narrative: 74-year-old man with a type III paraesophageal hernia is here for repair. He has no new symptoms. He has no complaints. He has no questions. 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 2021 mild/mod Medical History RBBB (04/18/16) on stress testing; done after NSVT during colonoscopy. Aspiration pneumonia of left lower lobe due to vomit (04/18/16) during colonoscopy. Recovered without in hospital stay. Central retinal vein occlusion, left eye (10/06/16) Diverticulosis (04/17/16) 04/17/16 [facility] [place] Family history of malignant neoplasm of prostate Internal hemorrhoids (04/17/16) 04/17/16 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 Neg stress and echo. See cardiology consult 05/05. Benign prostatic hypertrophy without urinary obstruction Generalized osteoarthritis Surgical History Hx of shoulder replacement (B) History of total left hip arthroplasty (06/06/23) History of total right hip replacement (12/13/21) Status post replacement of right shoulder joint (~2018) and left Status post replacement of left shoulder joint (07/26/16) Colonoscopy - MAC (04/17/16) 07/2004 Biopsy, Soft Tissue (10/03/17) trunk Back Surgery for pinched nerve Family History Mother , 76 Heart disease Father , 82 Heart disease Brother CAD (coronary artery disease) Hyperlipidemia Maternal Grandfather No problems noted. Paternal Grandfather Heart disease Maternal Grandmother No problems noted. Paternal Grandmother No problems noted. FAMILY HISTORY Prostate cancer Son No problems noted. Son Lymphoma Brother No problems noted. Social History Smoking/Tobacco Use Status: Never Second Hand Exposure: Yes Smoking risk assessment performed?: Yes Alcohol Intake: current Alcohol Intake frequency: 0-2 drinks per day Alcohol type: beer, wine and hard liquor Substance use type: marijuana Counseling provided: none (pt. declines these questions) Details: occasionally Caregiver/Support person: No Household members: spouse Housing: house Number of Children: 2 number of grandchildren: 6 Communication Needs: None Do you need help understanding health information?: Never current occupation: Retired. Worked in teaching, construction, retail. Pets and animals: No Sexually active: No Do you think of yourself as: straight/heterosexual Current gender identity: male What is your relationship status?: How often do you talk on the phone with friends or family?: once per week How often do you get together with friends or relatives?: once per week How often do you attend episcopal or bahai services?: 1-3 times per year Do you belong to any clubs or organized social groups?: no Panel score (0-1 are the most socially isolated patients): 1 What type of physical activity do you participate in: bicycling and other Details: hike, ski Duration: 60-90 minutes/day Frequency: 3-4 times per week Stefany/Yazidism: Gnosticism Special stefany needs: No Seatbelt use: always Helmet use: Yes Helmet use: always Drive intox or ride w/intox motorcoach driver: No Do you feel safe at home: Yes Do you feel safe in your relationship?: Yes Victim of physical abuse: No Victim of emotional abuse: No Victim of sexual abuse: No Would you like helpful sources: No Exam Narrative Exam Narrative: Gen: Non-toxic, comfortable and interactive Neuro: Alert and oriented x3 Psych: Good mood and affect. Good insight and understanding into condition. Chest: Non-labored breathing, no wheezing, no visible shortness of breath. Heart: Regular Results Last Vital Signs Temp 97.9 F 03/04/24 06:25 Pulse 67 03/04/24 06:25 Resp 16 03/04/24 06:25 BP 159/61 H 03/04/24 06:25 Pulse Ox 97 03/04/24 06:25
--- NOTE | 2024-03-04 08:41 | W.ANESNERVE ---
Nerve Block Single Injection Procedure Date and Time Date Performed: 03/04/24 Procedure Start: 07:48 Location Where Procedure Performed Procedure Location: Day Surgery Unit Reason Performed: Postoperative Analgesia Requesting Provider: Leonardo Crespo Timeout Performed Timeout Performed: Yes Monitoring Used ECG, Blood Pressure and SpO2 Sterility Sterility: Hand Hygiene, Surgical Cap, Surgical Mask and Chlorhexidine Sedation Given During Procedure Sedation Given (Indicate Dose Given): No Sedation given Patient Mental Status Patient Mental Status: Awake Nerve Block 1st Nerve Block: Laterality: Bilateral Block Type: Erector Spinae (Upper) Ultrasound Image Saved?: Yes Needle / Catheter Used: 100mm SonoPlex II Local Anesthetic Bolus (Indicate Dose Given): Lidocaine used for local infiltration of skin, Injected in 3-5ml increments after negative blood aspiration, Half of Total block solution given into each side, Bupivacaine 0.25% Dose:: 30 mL and Exparel Dose:: 20 mL Additives (Indicate Dose Given): None Ultrasound: Sterile probe cover and gel used Nerve Stimulator: Not Used Paresthesia: None Procedure Tolerated: No Complications Procedure Outcome: Successful Performed By: Devin Kim
[2024-03-04] MEDS: Bupivacaine 0.25% Pres-Free 10 ML VIAL (09:09)
--- NOTE | 2024-03-04 12:46 | W.PM.OP ---
Operative Note Operative Note Refer to Anesthesia Record Procedure Description: Procedure Description: Procedures: 1. Laparoscopic paraesophageal hernia repair 2. Laparoscopic Johnson fundoplication Preoperative Diagnosis: symptomatic type 3 paraesophageal hernia Postoperative Diagnosis: Same Surgeon: Trae Crespo Assist: Rosie Anesthesia: General Anesthesiologist: Devin Indication: Large, symptomatic type III paraesophageal hernia. Alcantara's esophagus. Contraindications for PPI use. Findings: A large-size type III paraesophageal hernia was present and reduced. Primary suture repair performed at the shirlene anterior and posterior. A 360 degree Johnson fundoplication was performed over a 56 [place] bougie. Complications: None Estimated Blood Loss: Minimal Specimens removed: None Grafts or implants: None Procedure in detail: Written consent was obtained from the patient who was in agreement the risks, the benefits and indications for the procedure. The patient was taken to the operating suite and laid supine on the operating table with arms outstretched. General anesthesia was administered which was tolerated very well. Anesthesia had performed an ultrasound?guided local block(see their procedure note for details) We placed the patient in lithotomy. Next we prepped and draped the abdomen in sterile fashion. A timeout was performed. When we were all in agreement we began the procedure. Just to the left of the bellybutton a small stab incision was made and a 5 mm Optiview trocar was used to enter into the abdomen under direct visualization. Four-quadrant diagnostic laparoscopy was performed and was grossly within normal limits. The liver was inspected and did not appear cirrhotic. 3 more trochars were placed across the abdomen under visualization. The 12 mm working port was placed in the mid clavicular line on the left side. A Zain liver retractor was used to retract the liver anteriorly and was placed in the epigastric location through a 5 mm defect. The patient was placed in steep reverse Trendelenburg and we had good visualization of the hiatus. The entire fundus was herniated within the chest. This was reduced laparoscopically. I identified the left shirlene of the diaphragm and incised the peritoneum overlying it from posterior circumferentially up to the anterior portion of the esophagus. The anterior(left) vagus nerve was visualized against the esophagus. I then turned my attention to opening pars flaccida and took down the attachments leading up to the right shirlene which was easily identified and again peritoneum was opened over top of this. I then ensured that all the peritoneum edges on the posterior aspect were divided(no hernia sac remaining). I was able to circumferentially clear the esophagus at the level of the hiatus and passed a [place] drain around this for retraction leading into the mediastinal dissection. Next, a combination of blunt dissection as well as dissection with the LigaSure was performed to mobilize the esophagus within the mediastinum taking care to dissect very high into the mediastinum to facilitate excellent mobilization. Exposure high in the mediastinum was not simple or straightforward because the patient's heart was somewhat in the way. A small defect was made inadvertently in the right pleura from blunt dissection as I continued to make progress mobilizing high in the mediastinum. The defect was identified readily. 15-20 minutes later, the patient did have an increase in peak pressures and oxygenation requirements and so I made an intentional small pleurotomy on the patient's left side to facilitate equalize pressures in the thoracic cavity. After this the patient's peak pressures decreased as to the oxygenation requirements. Satisfied with circumferential dissection within the mediastinum and the mobilization of the esophagus and that there was no tension, I verified that I had about 3 cm of esophagus intra-abdominal. Further, this stayed intra-abdominal without any retraction or tension. At this point I closed the left and right crura primarily, posteriorly using an Endo Stitch with interrupted sutures. This facilitated a nice closure that did not have any tension and I ensured that it was not too tight around the esophagus. I also stitched it anteriorly. At this time I was very satisfied, unusually satisfied, how little tension there was at the crura. Both crura were very beefy in size and were very pliable. They came together with absolutely no tension whatsoever and I felt that there was no role to place a mesh in this case. At this point anesthesia advanced a 56 [place] bougie gently down the esophagus while we watched with the laparoscope. The crural closure was not too tight. I divided some of the short gastrics in order to facilitate getting the fundus behind the esophagus/bougie loosely and without tension. Following this I was able to grab the fundus of the stomach and bring it around behind the esophagus without any tension or difficulty. I had excellent mobilization and I was able to get the fundus completely wrapped around the esophagus and GE junction over top of the 56 [place] bougie and no tension was noted. I then used 2-0 silk sutures and sutured about 2cm of fundus to fundus, thus completing the 360 degree wrap around the esophagus. I ensured that it was loose and floppy and not tight. I placed the superior two stitches partial-thickness through the esophagus to prevent the wrap from moving up or down at the GE junction. Hemostasis was excellent, the wrap lay very nicely and had no tension anywhere. All the needles were removed. The Zain retractor was removed. Hemostasis was again verified to be excellent. The 12 mm port site was closed with 0 Vicryl using a Dalton Gilles. All trochars were removed under visualization and the pneumoperitoneum was evacuated. We closed the skin with running Monocryl and placed skin glue over top of the wounds. The sponge, instrument and sharps counts were correct x3 at the end of the procedure. The patient tolerated the procedure well and was taken to the PACU in hemodynamically stable condition. Date of Procedure: 03/04/24
--- NOTE | 2024-03-04 13:39 | W.ANESPOSTOP ---
Postoperative Evaluation Date, Time and Location Date Performed: 03/04/24 Time Performed: 13:39 Patient Location: PACU Vital Signs Most Recent Imported Vital Signs: Most Recent Vital Signs Temp Pulse Resp BP Pulse Ox 36.5 C 54 L 17 100/50 L 93 03/04/24 13:30 03/04/24 13:36 03/04/24 13:37 03/04/24 13:36 03/04/24 13:37 Pain Score Most Recent Pain Score: Most Recent Pain Score Pain Level 0 03/04/24 13:30 Assessment Mental Status: Arousable with meaningful communication Airway and Respiratory Function: Patent airway with normal (patient baseline) respiratory exam (I/S and CDB encouraged. ) Cardiovascular Function: Hemodynamically Stable Hydration Status: Adequately Hydrated Nausea & Vomiting: No Nausea or Vomiting Pain: Pain is tolerable per patient Peripheral Nerve Block: Regional nerve block not resolved at time of post operative discharge
--- NOTE | 2024-03-04 14:12 | W.PC.ACHO ---
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) Polyp of colon (01/19/04) Sciatica of right side (09/02/14) Ventricular tachycardia (04/18/16) Benign prostatic hypertrophy without urinary obstruction Generalized osteoarthritis (Last Reviewed 03/04/24 @ 06:26 by Joselin Galo, SAIMA) Hx of shoulder replacement History of total left hip arthroplasty (06/06/23) History of total right hip replacement (12/13/21) Status post replacement of right shoulder joint (~2018) Status post replacement of left shoulder joint (07/26/16) Colonoscopy - MAC (04/17/16) Biopsy, Soft Tissue (10/03/17) Back Surgery Most Recent Vital Signs Temperature 36.5 C 03/04/24 14:00 Temperature Source Skin 03/04/24 07:24 Pulse 60 03/04/24 14:00 Pulse Rhythm Regular 03/04/24 06:25 Pulse 61 03/04/24 13:37 Respiratory Rate 16 03/04/24 14:00 Respiratory Depth Deep 03/04/24 06:25 Blood Pressure 124/55 L 03/04/24 14:00 Blood Pressure Mean 65 03/04/24 13:36 Blood Pressure Position Sitting 03/04/24 07:24 Pulse Oximetry 94 03/04/24 14:00 Respiratory End-tidal CO2 27 03/04/24 14:00 Oxygen Delivery Method Nasal Cannula 03/04/24 14:00 Oxygen Flow Rate 2 03/04/24 14:00 Pain Level 0 03/04/24 14:00 Comment Patient tolerated block well. 03/04/24 07:24 Allergies hydrochlorothiazide Adverse Reaction (Intermediate, Verified 03/04/24 06:14) hypercal hypercalcemia Active Medications Generic Name Dose Route Start Last Admin Trade Name Freq PRN Reason Stop Dose Admin Acetaminophen 1,000 mg 03/04/24 06:00 03/04/24 06:43 Acetaminophen 500 Mg Tab PO 03/04/24 23:59 1,000 mg PREOP BLANCA Administration Heparin Sodium (Porcine) 5,000 units 03/04/24 06:00 03/04/24 07:17 Heparin 5,000 Units/Ml Vial SC 03/04/24 23:59 5,000 units PREOP BLANCA Administration IV IV Catheter Type [Left Forearm Saline Lock ] IV Catheter Type [Left Hand] Peripheral IV IV Catheter Gauge [Left 22 Forearm] IV Catheter Gauge [Left Hand] 20 Diet Orders Category Date Time Status Regular/Normal [DIET] Nutrition 03/04/24 Lunch Active Intake and Output - 24 Hour Total 01/24/24 13:27 thru 03/04/24 14:00 Intake Total 950 Output Total 20 Balance 930 Weight 65.1 kg Intake: IV 950 Output: Estimated Blood Loss 20 Other: Emesis Description None Problems (Last Reviewed 03/04/24 @ 06:26 by Joselin Galo RN) Paraesophageal hernia (Acute) v v v v v v v v v Sending and/or Receiving Nurses: Please use comment section below to note any information pertinent to the patient hand-off not included above. Information / Comments: pt arrives to 210 via stretcher Report received from: SAIMA Manuel [id number]
[2024-03-05] MEDS: Acetaminophen 500 MG TAB 1000 MG PO ×2 (02:15→08:50)
--- NOTE | 2024-03-05 07:49 | DSE_ITS ---
Date of service: 03/05/24 Time of Service: 07:49 DS: Diagnosis Discharge Diagnosis (1) Paraesophageal hernia: Status: Acute Asessment and Plan: 74-year-old man is postop day 1 from laparoscopic paraesophageal hernia repair. He is doing well. He has no significant dysphagia although he says he felt his pills go down. He is able to swallow them however without difficulty. His biggest complaint is shoulder discomfort and he denies any abdominal pain or chest pain. Overall plan: Discharge home on pur?ed/liquid diet only for 2 weeks No heavy lifting or strenuous activity for 6 weeks. Discharge Plan Disposition Patient Disposition: Home Condition: Good Discharge Details Reason For Visit: Paraesophageal Hernia Repair Admit Date/Time: 03/04/24 13:10 Admit Provider: Leonardo Crespo Attending Provider: Leonardo Crespo Primary Care Provider: Heidi King Home Meds and New Rx's Prescriptions: No Action oxybutynin chloride 5 mg tablet 5 mg PO QHS PRN (Reason: bladder spasms) terazosin 2 mg capsule 2 mg PO QHS Qty: 90 3RF Multiple Vitamin-Minerals 1 EACH tablet 1 ea PO DAILY amlodipine 10 mg tablet 10 mg PO DAILY Qty: 90 3RF losartan 100 mg tablet 100 mg PO DAILY Qty: 90 3RF rosuvastatin 40 mg tablet 40 mg PO DAILY Qty: 90 3RF omeprazole 20 mg capsule,delayed release(DR/EC) 20 mg PO DAILY Qty: 30 3RF Discharge Instructions Additional Instructions: INSTRUCTIONS: Incisions: Keep clean and dry but they do not need to be covered. It is okay to shower but no tub bathing for 1 week. You can peel the glue off after 1 week. Activity: As tolerated. Light duty without any heavy lifting/pulling or pushing for 6-8 weeks. Diet: Liquid/pur?ed diet for 2 weeks. You can eat anything you want but it must be able to be poured. Medications: Resume all of your usual/regular home medications. Follow-up: If you are having any issues or concerns call the surgery office immediately. If you want to have a routine follow-up that is perfectly fine and you can call and schedule an. If everything is otherwise going well, you do not need to follow-up. Pain control: Take Tylenol, 1000 mg, every 6 hours on a schedule for the next 3 days. You can use ibuprofen in addition to Tylenol. Overall: Symptoms should not be worsening. If you have any difficulty breathing or you have return of symptoms of brought you to the hospital or your pain is otherwise worsening each day and you should call the doctor's office or come into the hospital to be checked out. Activity:: Activity as Tolerated Equipment/Supplies:: No Equipment Needed Diet:: As Tolerated DS: Summary Time Spent with Patient providing and/or coordinating discharge services: Less than 30 minutes Status at Discharge Functional status at discharge: independent ambulation Overall status at discharge: patient is progressing back to baseline Mental Status: mental status grossly normal Speech and Movement: speech and movement normal Mood: congruent mood Affect: normal affect Quality:SDOH Health Related Social Needs: No Data to Display Exam Narrative Exam Narrative: Gen: Non-toxic, comfortable and interactive Neuro: Alert and oriented x3 Psych: Good mood and affect. Good insight and understanding into condition. Chest: Non-labored breathing, no wheezing, no visible shortness of breath. Heart: Regular Abdomen: Soft, nondistended, appropriate tenderness around incisions only. Psych Mental Status: mental status grossly normal Speech and Movement: speech and movement normal Mood: congruent mood Affect: normal affect DS: Data Vitals/I&O Vitals and I&O: Vital Signs Temperature 97.7 F 03/04/24 19:38 Temperature Source Tympanic 03/04/24 19:38 Pulse 70 03/04/24 19:38 Pulse Rhythm Regular 03/04/24 14:23 Pulse 61 03/04/24 13:37 Respiratory Rate 16 03/04/24 19:38 Respiratory Effort Normal, Non-Labored 03/04/24 14:23 Respiratory Depth Shallow 03/04/24 14:23 Respiratory Pattern Normal 03/04/24 14:23 Blood Pressure 142/66 H 03/04/24 19:38 Blood Pressure Mean 65 03/04/24 13:36 Blood Pressure Position Sitting 03/04/24 07:24 Pulse Oximetry 96 03/04/24 19:38 Respiratory End-tidal CO2 27 03/04/24 14:00 Oxygen Delivery Method Room Air 03/04/24 19:38 Oxygen Flow Rate 0 03/04/24 19:38 Pain Level 6 03/05/24 02:15 Comment Patient tolerated block well. 03/04/24 07:24 Intake & Output 03/04/24 03/04/24 03/05/24 11:59 23:59 11:59 Intake Total 970 / 970 Output Total Balance 950 / 950 Weight 143 lb 8.335 oz Intake: IV 970 / 970 Output: Estimated Blood Loss Other: Urine Color Yellow Yellow Urine Appearance Clear Urine Odor Normal Normal Comment voided in toilet Emesis Description None PFSH All Active Problems Paraesophageal hernia (Acute) [place] esophagus determined by biopsy (Acute 12/2023) Chronic anemia (Acute) Microcytic anemia (Acute) Osteoarthritis of right knee (Acute) Chronic insomnia (Acute) Anemia (Chronic) Arthritis of first metatarsophalangeal (MTP) joint of left foot (Acute) Nocturia (Acute) Frequency of urination (Acute) Depression (Acute) Esophageal reflux (Chronic) Gastroesophageal reflux disease (Chronic) Generalized osteoarthrosis (Chronic) R AC joint; right thumb Hyperlipidemia (Chronic) Hypertension (Chronic) Systolic murmur (Chronic) Echo in 2016 with mild to moderate aortic regurgitation; EF 70%. 2021 mild/mod Medical History RBBB (04/18/16) on stress testing; done after NSVT during colonoscopy. Aspiration pneumonia of left lower lobe due to vomit (04/18/16) during colonoscopy. Recovered without in hospital stay. 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 Neg stress and echo. See cardiology consult 05/05. Benign prostatic hypertrophy without urinary obstruction Generalized osteoarthritis Surgical History (Updated 03/04/24 @ 14:12 by Ivet Oneill) History of esophageal hernia repair (~02/2024) Para Hx of shoulder replacement (B) History of total left hip arthroplasty (06/06/23) History of total right hip replacement (12/13/21) Status post replacement of right shoulder joint (~2019) and left Status post replacement of left shoulder joint (07/26/16) Colonoscopy - MAC (04/17/16) 07/2004 Biopsy, Soft Tissue (10/03/17) trunk Back Surgery for pinched nerve Family History Mother , 76 Heart disease Father , 82 Heart disease Brother CAD (coronary artery disease) Hyperlipidemia Maternal Grandfather No problems noted. Paternal Grandfather Heart disease Maternal Grandmother No problems noted. Paternal Grandmother No problems noted. FAMILY HISTORY Prostate cancer Son No problems noted. Son Lymphoma Brother No problems noted. Social History Smoking/Tobacco Use Status: Never Second Hand Exposure: Yes Smoking risk assessment performed?: Yes Alcohol Intake: current Alcohol Intake frequency: 0-2 drinks per day Alcohol type: beer, wine and hard liquor Substance use type: marijuana Counseling provided: none (pt. declines these questions) Details: occasionally Caregiver/Support person: No Household members: spouse Housing: house Number of Children: 2 number of grandchildren: 6 Communication Needs: None Do you need help understanding health information?: Never current occupation: Retired. Worked in teaching, construction, retail. Pets and animals: No Sexually active: No Do you think of yourself as: straight/heterosexual Current gender identity: male What is your relationship status?: How often do you talk on the phone with friends or family?: once per week How often do you get together with friends or relatives?: once per week How often do you attend voodoo or quaker services?: 1-3 times per year Do you belong to any clubs or organized social groups?: no Panel score (0-1 are the most socially isolated patients): 1 What type of physical activity do you participate in: bicycling and other Details: hike, ski Duration: 60-90 minutes/day Frequency: 3-4 times per week Stefany/Uatsdin: Scientologist Special stefany needs: No Seatbelt use: always Helmet use: Yes Helmet use: always Drive intox or ride w/intox mixer driver: No Do you feel safe at home: Yes Do you feel safe in your relationship?: Yes Victim of physical abuse: No Victim of emotional abuse: No Victim of sexual abuse: No Would you like helpful sources: No Time Spent with Patient Time Spent with Patient: 45-69 minutes Time was spent: preparing to see the patient(eg.review tests), indepentently interpreting results, counseling the patient and care coordination
[2024-03-05 08:07] VITALS: BP 151/77; PULSE 85; RESP 19; TEMP 37.6; O2SAT 93
--- NOTE | 2024-03-05 08:43 | PDOC.CMDIS ---
Date of service: 03/05/24 Time of Service: 08:43 LACE Index Scoring Tool Questions: Length of Stay (in days): 2 Was the patient admitted via the E.D.?: No E.D. Visits: 0 Answers: Total Score: 2 Risk of Readmission: Low Risk Care Management Discharge Plan Reason for Hospitalization: Paraoesophageal Hernia Repar Discharge Plan: Discharge home via private vehicle with family. Follow up with community providers and her discharge plan of care as directed by surgical. No new services are ordered prior to discharge. Patient/Family Education Needs: Review discharge instructions, limitations, medications and plan to follow up with Surgical. Discuss ask me three. SDME Health Related Social Needs: No Data to Display
[2024-03-05] MEDS: Heparin 5,000 UNITS/ML VIAL 5000 UNITS SC (08:50)
== END 2024-03-05 10:45 | disposition home or self-care (01) ==
LOC: MS 14:13
PROVIDERS: Admitting Provider Student in an Organized Health Care Education/Training Program; PCP Family Medicine; Visit Provider Student in an Organized Health Care Education/Training Program
PROC: 0BUT4JZ Supplement Diaphragm with Synthetic Substitute, Percutaneous Endoscopic Approach (ICD-10-PCS; CPT 43282; principal; 2024-03-04 07:30)
DX: K44.9 Diaphragmatic hernia without obstruction or gangrene (principal); K22.70 Barrett's esophagus without dysplasia; G89.18 Other acute postprocedural pain; R10.13 Epigastric pain; D50.9 Iron deficiency anemia, unspecified; F32.A Depression, unspecified; E78.5 Hyperlipidemia, unspecified; I10 Essential (primary) hypertension; K21.9 Gastro-esophageal reflux disease without esophagitis; M17.11 Unilateral primary osteoarthritis, right knee; I35.1 Nonrheumatic aortic (valve) insufficiency
CPT/HCPCS: 43281; 00123; 64450; 76942; 96372; G0378; J0665; J0666; J1100; J1644; J1885; J2405; J2704; J3475

== ENCOUNTER 2024-03-21 10:19 | Outpatient (CLI) | payer MEDICARE, SELFPAY ==
[2024-03-21 12:35] LABS: ALT 34 U/L (16-63); AST 26 U/L (15-37); Alkaline Phosphatase 81 U/L (46-116); Anion Gap 7.6 mmol/L (3-11); BUN 22 mg/dL (7-18); Bilirubin, Total 0.42 mg/dL (0.2-1.0); CO2 28.4 mmol/L (21.0-32.0); CREATININE 1.2 mg/dL (0.70-1.30); Calcium 10.1 mg/dL (8.5-10.1); Chloride 105 mmol/L (98-107); Estimated GFR 63.07 (mL/min/1.73m2); Glucose 108 mg/dL (74-106); Potassium 4.3 mmol/L (3.5-5.1); Sodium 141 mmol/L (136-145); Total Protein 7.7 g/dL (6.4-8.2)
== END 2024-03-21 10:20 | disposition home or self-care (01) ==
LOC: LOS 10:19
PROVIDERS: PCP Family Medicine; Referring Provider Family Medicine; Visit Provider Family Medicine
DX: I10 Essential (primary) hypertension; Z98.890 Other specified postprocedural states; Z87.19 Personal history of other diseases of the digestive system; K21.9 Gastro-esophageal reflux disease without esophagitis; R35.1 Nocturia
CPT/HCPCS: 36415; 80053

== ENCOUNTER 2024-03-31 02:03 | Outpatient (CLI) | payer MEDICARE, SELFPAY ==
--- NOTE | 2024-03-31 07:15 | DI.US_ITS ---
Exam(s) US CAROTID EXAM: US CAROTID CLINICAL HISTORY: right carotid aneurysm,I72.0. TECHNIQUE: Ultrasound carotids performed using grayscale, color-flow, and spectral Doppler imaging. COMPARISON: No exams were available for comparison FINDINGS: RIGHT CAROTID ARTERY: Plaque: No visible plaque. Velocity elevation: None. LEFT CAROTID ARTERY: Plaque: Minimal. Velocity elevation: None. VERTEBRAL ARTERIES: Antegrade flow. IMPRESSION: Minimal plaque at the left common carotid bulb. No evidence for hemodynamically significant carotid stenosis. Criteria for Carotid Stenosis: Normal: ICA PSV <125 cm/s no plaque or intimal thickening is visible. <50% stenosis: ICA PSV <125 cm/s and plaque or intimal thickening is visible. 50-69% stenosis: ICA PSV is 125-250 cm/s and plaque is visible. >70% stenosis to near occlusion: ICA PSV >250 cm/s with visible plaque and luminal narrowing. DATA REPOSITORY:
--- NOTE | 2024-03-31 14:59 | DI.RAD_ITS ---
Exam(s) XR CHEST 2V PA LATERAL EXAM: XR CHEST 2V PA LATERAL CLINICAL HISTORY: bibasilar crackles,r09.89 TECHNIQUE: 2D digital imaging was performed. Two views. COMPARISON: CR RF BARIUM SWALLOW from 02/01/2024 FINDINGS: HEART: Normal size. Aorta: Not dilated. Calcified. PULMONARY VASCULATURE: Normal. MEDIASTINUM: Unremarkable. LUNGS: Clear. No visible fibrotic changes. PLEURAL SPACE: No pleural effusion or pneumothorax. BONE:Bilateral shoulder prostheses. Degenerative changes in the thoracic spine. SOFT TISSUES: Unremarkable. IMPRESSION: No acute abnormality. DATA REPOSITORY: RADIATION DOSE DELIVERED:
== END 2024-03-31 02:23 ==
LOC: DI 02:03
PROVIDERS: PCP Family Medicine; Visit Provider Family Medicine
DX: R09.89 Other specified symptoms and signs involving the circulatory and respiratory systems (principal); I72.0 Aneurysm of carotid artery
CPT/HCPCS: 71046; 93880

== ENCOUNTER → 2024-04-09 11:15 | Outpatient (BNVA) | payer MEDICARE, SELFPAY | PROVIDERS: PCP Family Medicine; Referring Provider Family Medicine; Visit Provider Student in an Organized Health Care Education/Training Program | DX: Z48.817 Encounter for surgical aftercare following surgery on the skin and subcutaneous tissue ==

== ENCOUNTER 2024-06-04 01:46 | Outpatient (CLI) | payer MEDICARE, SELFPAY ==
--- NOTE | 2024-06-04 07:30 | DI.US_ITS ---
APPROVED REPORT EXAM: Comprehensive 2D, Doppler, and color-flow Echocardiogram Patient Location: Out-Patient Oceanographic Meteorologist: Daniel Tompkins RDCS (AE) Indications: Recent transient amnesia, systolic CHF Other Information Study Quality: Good Conclusion Normal left ventricular wall thickness and chamber size. Ejection fraction is 60%. Wall motion is n ormal Normal right ventricular size and function Both atria are normal in size Aortic valve is mildly sclerotic and trileaflet. There is mild aortic regurgitation Structurally normal mitral valve with mild regurgitation Ascending aorta measures 3.85 cm Estimated right ventricular systolic pressure is 33 mmHg Wall motion Left Ventricle The left ventricle is normal size. Left ventricular systolic function is normal. The left ventricular ejection fraction is within the normal range. There is normal left ventricular wall thickness. There is normal LV segmental wall motion. There is no ventricular septal defect visualized. LVEF is 60%. Right Ventricle The right ventricle is normal size. The right ventricular systolic function is normal. Atria The left atrium size is normal. The right atrium size is normal. The interatrial septum is intact wit h no evidence for an atrial septal defect. Aortic Valve The aortic valve is mildly sclerotic. There is no aortic valvular stenosis. mild aortic regurgitation . Mitral Valve The mitral valve is normal in structure. No evidence of mitral valve stenosis. Mild mitral regurgitat ion. Tricuspid Valve The tricuspid valve is normal in structure. There is no tricuspid valve stenosis. Trace tricuspid reg urgitation. The RVSP is 33 mmHg. Pulmonic Valve The pulmonary valve is normal in structure. There is no pulmonic valvular stenosis. Trace pulmonic re gurgitation. Great Vessels The aortic root is normal in size. The ascending aorta is mildly dilated. Aortic arch is normal in ca liber. IVC is normal in size and collapses >50% with inspiration. Pericardium There is no pericardial effusion. 2D Dimensions IVSD d PLAX 1.05 cm M: 0.6-1.2 Ao Root d 3.55 cm M: 3.1 - 3.7 LVPW d PLAX 0.98 cm M: 0.6 - 1.2 Ao Asc Diam d 3.85 cm M: 2.6 - 3.4 LVID d PLAX 5.20 cm M: 4.2 - 5.8 LVDs 3.71 cm M: 2.5 - 4.0 LV EF Teichholz 54.8 % FS 28.65 % LV EDV (Teich) 129.4 mL LV ESV (Teich) 58.5 mL Stroke Vol Index (Teich) 43.54 M-Mode TAPSE 2.24 cm (M/F) >1.7 Auto EF LV EDV A4C 116.9 mL LV EDV A2C 140.8 mL LV EDV BP 135.1 mL LV ESV A4C 46.6 mL LV ESV A2C 57.9 mL LV ESV BP 52.0 mL LVEF(%) A4C 60.2 % LVEF(%) A2C 58.9 % LVEF(%) BP 61.5 % LV SV A4C 70.3 ml LV SV A2C 82.9 ml LV SV BP 83.0 ml LV CO A4C 4.2 L/min LV CO A2C 4.6 L/min LV CO BP 4.4 L/min HR A4C 60.10 BPM HR A2C 55.73 BPM LV EDV Index (BP) LA Volume LA Length A4C 4.7 cm LA Length A2C 5.5 cm LA Area A4C s 11.73 cm2 LA Area A2C s 15.39 cm2 LA Vol A4C A-L 25.04 mL LA Vol A2C A-L 36.54 mL LA Vol Biplane A-L 32.9 mL LA Vol/BSA A4C A-L LA Vol/BSA A2C A-L LA Vol/BSA BP A-L 20.2 mL/m2 LA Vol A4C MOD 23.9 mL LA Vol A2C MOD 35.2 mL LA Vol BP MOD 31.3 mL RA Volume RA Area A4C 9.6 cm2 RA ESV A4C (A-L) 18.3mL RA Vol/BSA A4C A-L RA Length A4C 4.3 cm RA ESV A4C (MOD) 17.9mL LV Diastology MV E' medial 0.027 (>0.07 m/s) MV E Vmax 0.53 (0.4-1.3 m/s) MV E/E' MED 19.67 (<14) MV A Vmax 1.00 (0.4-1.3 m/s) MV E' lateral 0.045 (>0.1 m/s) E/A Ratio 0.5 MV E/E' LAT 11.87 (<14) MV E' Average 0.036 m/s MV E/E'(average) 14.80 Aortic Valve AoV Vmax 1.79 m/s LVOT Vmax 1.19 m/s AoV Peak Grad 29.6 mmHg LVOT Peak Grad 5.7 mmHg AoV Area (Vmax) 2.23 cm2 LVOT VTI 0.208 m AoV VTI 0.410 m LVOT Mean Grad 3.2 mmHg AoV Mean Jermaine. 1.21 m/s LVOT SV 69.60 mL AoV Mean Grad 6.8 mmHg LVOT Diam s 2.05 cm AoV Area (VTI) 1.70 cm2 AV Regurg Peak Gr. 12.85 mmHg Velocity Ratio 0.66 AR Decel [place] 0.9m/sec2 AR DT 3893 msec AR PHT 1129 msec AR Vmax 3.40 m/s Mitral Valve MV DT 324 (160-240 msec) Pulmonary Valve PV Vmax 1.01 (0.5-1.5 m/s) RVOT Vmax 0.81 m/s PV Peak Grad 4.1 mmHg RVOT Peak Gr. 2.6 mmHg PV Mean Jermaine 0.68 m/s RVOT VTI 0.190 m PV Mean Grad 2.1 mmHg RVOT Mean Gr. 1.5 mmHg Tricuspid Valve RA Pressure 3.00 mmHg TR Vmax 2.74 m/s TV S' 0.16 m/s TR Peak Grad 30.0 mmHg RVSP (TR) 33.1 mmHg
== END 2024-06-04 02:06 ==
LOC: DI 01:46
PROVIDERS: PCP Family Medicine; Visit Provider Internal Medicine Cardiovascular Disease
DX: I50.20 Unspecified systolic (congestive) heart failure (principal); R01.1 Cardiac murmur, unspecified; I35.0 Nonrheumatic aortic (valve) stenosis
CPT/HCPCS: 93306

== ENCOUNTER 2024-06-05 10:04 | Outpatient (CLI) | payer MEDICARE, SELFPAY ==
--- NOTE | 2024-06-05 09:15 | DI.RAD_ITS ---
Exam(s) XR HIP LT AP LAT ONLY EXAM: XR HIP LT AP LAT ONLY CLINICAL HISTORY: ANNUAL F/U L [facility]. TECHNIQUE: 2D digital imaging was performed. COMPARISON: CR XR HIP LT COMPLETE AP PELVIS from 06/21/2023 FINDINGS: Two views Stable position alignment of the components of the left hip prosthesis. No fracture or loosening ana rosa dent. Mild dystrophic calcification is unchanged. IMPRESSION: Stable satisfactory appearance DATA REPOSITORY: RADIATION DOSE DELIVERED:
== END 2024-06-05 10:05 | disposition home or self-care (01) ==
LOC: DIORS 10:05
PROVIDERS: PCP Family Medicine; Referring Provider Family Medicine; Visit Provider Student in an Organized Health Care Education/Training Program
DX: Z47.1 Aftercare following joint replacement surgery (principal); Z96.642 Presence of left artificial hip joint
CPT/HCPCS: 99213; 73502

== ENCOUNTER 2024-06-10 06:43 | Outpatient (CLI) | payer MEDICARE, SELFPAY ==
--- NOTE | 2024-06-10 11:55 | W.CARDEVENT ---
Date of service: 06/10/24 Time of Service: 11:55 Cardiac Event Recorder Referring Provider:: Heidi King Indications:: Palpitations Cardiac Event Note: This is a cardiac event monitor. Patient was monitored for 11 days and 21 hours. Predominant rhythm was sinus with an average heart rate of 64. Minimum was 39, maximum 125 There were occasional to frequent premature ventricular contractions. These comprised 5% of total. There were several periods of accelerated idioventricular rhythm. There was several runs of nonsustained ventricular tachycardia. These were generally less than 5 beats in duration, longest lasted 12 seconds/24 beats. There were rare atrial premature beats. There were rare brief self-limited atrial runs. There was no atrial fibrillation, no pauses greater than 3.5 seconds. Mobitz 1 second-degree AV block (Wenckebach) was noted during sleep. Reported single symptom correlated to premature ventricular contractions
== END 2024-06-10 06:44 | disposition home or self-care (01) ==
LOC: CARDOPNVT 06:43
PROVIDERS: PCP Family Medicine; Visit Provider Internal Medicine Cardiovascular Disease
DX: I49.1 Atrial premature depolarization (principal); I44.1 Atrioventricular block, second degree
CPT/HCPCS: 93248

== ENCOUNTER 2024-10-01 04:12 | Outpatient (CLI) | payer MEDICARE, SELFPAY ==
[2024-10-01 12:28] LABS: Abs Immature Grans 0.03 10^3/uL (0.0-0.06); HCT 38.3 % (40.0-50.0); HGB 12.4 g/dL (13.5-17.5); Immature Grans % 0.4 %; MCH 28.6 pg (27.0-33.0); MCHC 32.4 % (32.0-36.0); MCV 88 fL (80-95); MPV 8.7 fL (8.0-11.0); Platelet Count 328 10^3/uL (130-400); RBC 4.34 10^6/uL (4.36-5.78); RDW 13.2 % (11.8-14.1); RDW-SD 42.5 fL; WBC 7.95 10^3/uL (4.4-10.8)
[2024-10-01 12:32] LABS: ALT 35 U/L (16-63); AST 32 U/L (15-37); Albumin 4.0 g/dL (3.4-5.0); Alkaline Phosphatase 73 U/L (46-116); Anion Gap 9.0 mmol/L (3-11); BUN 33 mg/dL (7-18); Bilirubin, Total 0.5 mg/dL (0.2-1.0); CO2 24.0 mmol/L (21.0-32.0); Calcium 9.6 mg/dL (8.5-10.1); Chloride 106 mmol/L (98-107); Estimated GFR 63.07 (mL/min/1.73m2); Glucose 103 mg/dL (74-106); Potassium 4.4 mmol/L (3.5-5.1); Sodium 139 mmol/L (136-145); Total Protein 7.3 g/dL (6.4-8.2)
== END 2024-10-01 04:13 | disposition home or self-care (01) ==
LOC: LOS 04:12
PROVIDERS: PCP Family Medicine; Visit Provider Family Medicine
DX: D64.9 Anemia, unspecified (principal); I10 Essential (primary) hypertension
CPT/HCPCS: 36415; 80053; 85025